=== PATIENT | female | born 1970 | race Caucasian/White ===

== ENCOUNTER 2016-05-25 16:02 | Inpatient (IN) | payer OTHER ==
[~2016-05-25] VITALS: Ht 160 cm; Wt 72.1 kg
[~2016-05-25 16:02] MED LIST: ATEN25TA PO; FURO-145 PO; LEVO175T7 PO; MONT10TA22 PO; POTA10TA10 PO; TRAZ-144 PO
[2016-05-25] MEDS ORDERED: DEXTROSE 50%-WATER 50 ML DISP.SYRIN ONE (16:22)
[2016-05-25] MEDS ORDERED: IV NS 0.9% 1,000 ML ONE ×2 (16:23→18:56)
[2016-05-25] MEDS ORDERED: IV SET PRIMARY PUMP SET 1 EA INFUS.SET MC ONE ×2 (16:23→18:56)
[2016-05-25] MEDS ORDERED: DEXTROSE 50%-WATER 50 ML DISP.SYRIN IV ONE (16:30)
[2016-05-25] MEDS ORDERED: IV NS 0.9% 1,000 ML BAG IV ONE ×2 (16:30→18:30)
[2016-05-25 16:59] LABS: BASOPHILS % (AUTO) 0.1 % (0.0-2.0); DIFF TOTAL % 100 %; HEMATOCRIT 32 % (33-45); HEMOGLOBIN 10.5 g/dL (11.5-14.8); LYMPHOCYTES # (AUTO) 1.6 /CMM (0.8-4.8); LYMPHOCYTES % (AUTO) 9.7 % (20.0-44.0); MEAN CORPUSCULAR HEMOGLOBIN 30 PG (26.0-33.0); MEAN CORPUSCULAR HGB CONC 33 g/dl (31.0-36.0); MEAN CORPUSCULAR VOLUME 91 fL (82-100); MONOCYTES # (AUTO) 0.1 /CMM (0.1-1.30); MONOCYTES % (AUTO) 0.5 % (2.0-12.0); NEUTROPHILS # (AUTO) 14.8 /CMM (1.8-8.9); NEUTROPHILS % (AUTO) 89.7 % (43.0-81.0); PLATELET COUNT (AUTO) 162 /CMM (150-450); RED BLOOD CELL COUNT(AUTO) 3.55 MIL/uL (4.0-5.2); WHITE BLOOD COUNT (AUTO) 16.5 K/uL (4.3-11.0)
[2016-05-25 17:16] LABS: TROPONIN I < 0.017 ng/mL (0.00-0.056)
[2016-05-25 17:18] LABS: LACTIC ACID 2.3 mmol/L (0.4-2.0)
[2016-05-25 17:21] LABS: ANION GAP 16 (5-14); CALCIUM, SERUM 6.7 mg/dL (8.5-10.1); CARBON DIOXIDE 22 mmol/L (21-32); CHLORIDE 106 mmol/L (98-107); GFR 61 mL/min (>60); GLUCOSE 141 mg/dL (74-106); POTASSIUM 4.2 mmol/L (3.5-5.1); SODIUM SERUM 140 mmol/L (136-145); UREA NITROGEN, BLOOD 9 mg/dL (7-18)
[2016-05-25 17:27] LABS: ACETAMINOPHEN 4 ug/ml (10-30); ALANINE AMINOTRANSFERASE 42 U/L (12-78); ASPARTATE AMINOTRANSFERASE 65 U/L (15-37); BILIRUBIN,DIRECT 0.8 mg/dL (0.0-0.2); BILIRUBIN,TOTAL 1.2 mg/dL (0.2-1.0); INDIRECT BILIRUBIN 0.4 mg/dL (0.0-1.1); TOTAL PROTEIN, SERUM 4.6 g/dL (6.4-8.2)
[2016-05-25 17:30] LABS: ALBUMIN 0.9 g/dL (3.4-5.0)
[2016-05-25 17:43] LABS: THYROID STIMULATING HORMONE 0.083 uIU/mL (0.358-3.74)
[2016-05-25 17:45] LABS: *LACTIC ACID REFLEX FLAG YES
[2016-05-25 17:52] LABS: INR 1.64 (0.87-1.13); PROTHROMBIN TIME 17.8 SECS (9.5-12.7)
[2016-05-25 18:07] LABS: BAND % (MANUAL) 3 % (0.0-5.0)
[2016-05-25 18:08] LABS: LYMPHOCYTES % (MANUAL) 6 % (16-48)
[2016-05-25] MEDS ORDERED: LEVOFLOXACIN 750 MG /D5W 150ML 150 ML IV ONE ×2 (18:30→18:56)
[2016-05-25 18:53] LABS: KETONES,URINE TRACE (NEGATIVE); LEUKOCYTE ESTERASE ,URINE NEGATIVE (NEGATIVE)
[2016-05-25 18:54] LABS: PREGNANCY TEST URINE QUAL NEGATIVE (NEGATIVE)
[2016-05-25 18:58] LABS: ADD UA MICROSCOPIC YES
[2016-05-25 19:05] LABS: ADD URINE CULTURE NO; RBC,URINE 0-2 /HPF (0-2); WBC,URINE 0-2 /HPF (0-3)
[2016-05-25 19:11] LABS: CANNABINOID, URINE NEGATIVE (NEGATIVE); PHENCYCLIDINE SCREEN,URINE NEGATIVE (NEGATIVE)
[2016-05-25 19:28] LABS: CREATINE KINASE MB 7.6 ng/mL (0-3.6)
[2016-05-25] MEDS ORDERED: ZOLPIDEM TARTRATE 5 MG TABLET PO PRN (21:30)
[2016-05-25] MEDS ORDERED: MAG HYDROX/AL HYDROX/SIMETH 30 ML UDC PO PRN (21:30)
[2016-05-25] MEDS ORDERED: LORAZEPAM INJ 2 MG/ML VIAL IVP PRN (21:30)
[2016-05-25] MEDS ORDERED: MAGNESIUM HYDROXIDE 30 ML UDC PO PRN (21:30)
[2016-05-25] MEDS ORDERED: ONDANSETRON HCL/PF 4 MG/2 ML VIAL IVP PRN (21:30)
[2016-05-26] MEDS: LEVOFLOXACIN 750 MG /D5W 150ML 750 MG in PREMIX 1 EA IV SCH ×2 (00:11→23:40)
[2016-05-26] MEDS ORDERED: LORAZEPAM INJ 2 MG/ML VIAL ONE (04:40)
[2016-05-26] MEDS ORDERED: AZTREONAM 1 G VIAL ONE (05:07)
[2016-05-26] MEDS ORDERED: FLUCONAZOLE IN NS 100 ML IV ONE (05:08)
[2016-05-26] MEDS ORDERED: IV NS 0.9% 100 ML IV ONE (05:20)
[2016-05-26] MEDS: AZTREONAM 1 G in IV NS 0.9% 100 ML IV SCH ×3 (05:36→22:14)
[2016-05-26 08:00] VITALS: BP_SYST 106; BP_SYST 118; BP_DIAS 66; BP_DIAS 74
[2016-05-26 08:31] LABS: BASOPHILS % (AUTO) 0.1 % (0.0-2.0); DIFF TOTAL % 100 %; EOSINOPHILS % (AUTO) 0.1 % (0.0-6.0); HEMATOCRIT 32 % (33-45); HEMOGLOBIN 10.4 g/dL (11.5-14.8); LYMPHOCYTES % (AUTO) 6.2 % (20.0-44.0); MEAN CORPUSCULAR HEMOGLOBIN 30 PG (26.0-33.0); MEAN CORPUSCULAR HGB CONC 33 g/dl (31.0-36.0); MEAN CORPUSCULAR VOLUME 91 fL (82-100); MONOCYTES # (AUTO) 0.3 /CMM (0.1-1.30); NEUTROPHILS # (AUTO) 14.4 /CMM (1.8-8.9); NEUTROPHILS % (AUTO) 91.6 % (43.0-81.0); PLATELET COUNT (AUTO) 98 /CMM (150-450); WHITE BLOOD COUNT (AUTO) 15.7 K/uL (4.3-11.0)
[2016-05-26 09:17] LABS: LYMPHOCYTES % (MANUAL) 16 % (16-48); PLATELET ESTIMATE DECREASED
[2016-05-26 09:54] LABS: PREALBUMIN 6.3 MG/DL (18.0-35.7)
[2016-05-26 09:57] LABS: LACTIC ACID 1.4 mmol/L (0.4-2.0)
[2016-05-26 10:52] LABS: CALCIUM, SERUM 6.8 mg/dL (8.5-10.1); CREATININE 0.8 mg/dL (0.6-1.3); PHOSPHORUS 3.3 mg/dL (2.5-4.9)
[2016-05-26 11:05] LABS: POTASSIUM 4.1 mmol/L (3.5-5.1)
[2016-05-26 11:56] LABS: CREATINE KINASE MB 13.1 ng/mL (0-3.6)
[2016-05-26] MEDS ORDERED: SECONDARY IV SET 1 EA INFUS.SET MC ONE ×3 (14:35→23:35)
[2016-05-26] MEDS: PANTOPRAZOLE 40 MG VIAL IV SCH (14:43)
[2016-05-26] MEDS: FUROSEMIDE 20 MG TABLET PO SCH (14:43)
[2016-05-26] MEDS: MONTELUKAST SODIUM (10MG) 10 MG TABLET PO SCH (14:43)
[2016-05-26] MEDS: LEVOTHYROXINE SODIUM 175 MCG TABLET PO SCH (14:43)
[2016-05-26] MEDS: POTASSIUM CHLORIDE 10 MEQ TABLET.SA PO SCH (14:45)
[2016-05-26] MEDS: Magnesium 1GM/D5W 100ML PREMIX 100 ML IV SCH ×2 (14:46→15:36)
[2016-05-26] MEDS: IV NS 0.9% 1,000 ML IV PRN (14:47)
[2016-05-26] MEDS: ATENOLOL 25 MG TABLET PO SCH (14:48)
[2016-05-26] MEDS: Z GUARD REMEDY 2 OZ OINT TP SCH (14:49)
[2016-05-26 16:00] VITALS: BP 90/50
[2016-05-26] MEDS: ACETAMINOPHEN 325 MG TABLET PO PRN (20:12)
[2016-05-26 20:25] VITALS: BP 118/75
[2016-05-26] MEDS: TRAZODONE 50 MG TABLET PO SCH (22:15)
[2016-05-27 00:19] VITALS: BP 102/66
[2016-05-27 04:23] VITALS: BP 89/53
[2016-05-27] MEDS: LORAZEPAM INJ 2 MG/ML VIAL IV PRN (04:40)
[2016-05-27] MEDS: AZTREONAM 1 G in IV NS 0.9% 100 ML IV SCH ×2 (04:41→12:58)
[2016-05-27] MEDS: LEVOTHYROXINE SODIUM 175 MCG TABLET PO SCH (06:47)
[2016-05-27 07:35] LABS: CALCIUM, SERUM 6.9 mg/dL (8.5-10.1); POTASSIUM 3.5 mmol/L (3.5-5.1)
[2016-05-27] MEDS: FUROSEMIDE 20 MG TABLET PO SCH (08:08)
[2016-05-27] MEDS: MONTELUKAST SODIUM (10MG) 10 MG TABLET PO SCH (08:08)
[2016-05-27] MEDS: POTASSIUM CHLORIDE 10 MEQ TABLET.SA PO SCH (08:09)
[2016-05-27] MEDS: ATENOLOL 25 MG TABLET PO SCH (08:09)
[2016-05-27] MEDS: PANTOPRAZOLE 40 MG VIAL IV SCH (08:10)
[2016-05-27] MEDS: Z GUARD REMEDY 2 OZ OINT TP SCH (08:25)
[2016-05-27 12:00] VITALS: BP 98/66
[2016-05-27] MEDS: Magnesium 1GM/D5W 100ML PREMIX 100 ML IV SCH ×2 (14:09→16:44)
[2016-05-27 16:00] VITALS: BP 84/45
[2016-05-27] MEDS: LACTOBACILLUS RHAMNOSUS GG 1 EACH CAP.SPRINK PO SCH (16:44)
[2016-05-27] MEDS ORDERED: IV NS 0.9% 1,000 ML BAG IV ONE (17:30)
[2016-05-27] MEDS ORDERED: FEE PK DOSING 1 MIN EA MC ONE (18:52)
[2016-05-27] MEDS: IV NS 0.9% 1,000 ML IV PRN (19:32)
[2016-05-27 20:00] VITALS: BP 91/53
[2016-05-27] MEDS: VANCOMYCIN 500 MG in IV D5W 100 ML IV SCH (21:14)
[2016-05-27] MEDS: TRAZODONE 50 MG TABLET PO SCH (22:22)
[2016-05-27] MEDS: Z GUARD REMEDY 2 OZ OINT TP PRN (22:23)
[2016-05-27] MEDS: NYSTATIN CREAM 15 GM TUBE TP SCH (22:24)
[2016-05-27] MEDS: LEVOFLOXACIN 750 MG /D5W 150ML 750 MG in PREMIX 1 EA IV SCH (23:25)
[2016-05-28] VITALS (7 sets, daily range): BP systolic 73–100; BP diastolic 43–59
[2016-05-28 04:13] LABS: HEPATITIS C VIRUS AB <0.1 s/co ratio (0.0-0.9)
[2016-05-28] MEDS: VANCOMYCIN 500 MG in IV D5W 100 ML IV SCH ×2 (04:38→12:37)
[2016-05-28] MEDS: ACETAMINOPHEN 325 MG TABLET PO PRN (06:00)
[2016-05-28] MEDS: Z GUARD REMEDY 2 OZ OINT TP PRN ×3 (06:00→21:33)
[2016-05-28 08:21] LABS: CALCIUM, SERUM 7.1 mg/dL (8.5-10.1); CREATININE 1.2 mg/dL (0.6-1.3); POTASSIUM 3.6 mmol/L (3.5-5.1)
[2016-05-28] MEDS: LACTOBACILLUS RHAMNOSUS GG 1 EACH CAP.SPRINK PO SCH ×2 (08:45→16:36)
[2016-05-28] MEDS: POTASSIUM CHLORIDE 10 MEQ TABLET.SA PO SCH (08:45)
[2016-05-28] MEDS: LEVOTHYROXINE SODIUM 175 MCG TABLET PO SCH (08:46)
[2016-05-28] MEDS: PANTOPRAZOLE 40 MG VIAL IV SCH (08:46)
[2016-05-28] MEDS: MONTELUKAST SODIUM (10MG) 10 MG TABLET PO SCH (08:48)
[2016-05-28] MEDS: ATENOLOL 25 MG TABLET PO SCH (08:55)
[2016-05-28] MEDS: FUROSEMIDE 20 MG TABLET PO SCH (08:55)
[2016-05-28] MEDS: NYSTATIN CREAM 15 GM TUBE TP SCH ×2 (08:55→16:36)
[2016-05-28] MEDS: Z GUARD REMEDY 2 OZ OINT TP SCH (08:57)
[2016-05-28] MEDS ORDERED: IV NS 0.9% 500 ML IV ONE ×2 (09:29→09:30)
[2016-05-28] MEDS ORDERED: IV SET PRIMARY PUMP SET 1 EA INFUS.SET MC ONE (09:29)
[2016-05-28] MEDS ORDERED: HYDROGEL DRESSING 90 GM TUBE TP PRN (10:00)
[2016-05-28] MEDS: HYDROGEL DRESSING 90 GM TUBE TP SCH (12:38)
[2016-05-28] MEDS: IV NS 0.9% 1,000 ML IV PRN (16:36)
[2016-05-28] MEDS: TRAZODONE 50 MG TABLET PO SCH (21:32)
[2016-05-28] MEDS: LEVOFLOXACIN 750 MG /D5W 150ML 750 MG in PREMIX 1 EA IV SCH (23:19)
[2016-05-28] MEDS ORDERED: SECONDARY IV SET 1 EA INFUS.SET MC ONE (23:20)
[2016-05-29] MEDS: VANCOMYCIN 500 MG in IV D5W 100 ML IV SCH ×2 (00:57→12:08)
[2016-05-29] MEDS: ACETAMINOPHEN 325 MG TABLET PO PRN ×3 (01:01→21:11)
[2016-05-29] MEDS: IV NS 0.9% 1,000 ML IV PRN ×2 (06:15→23:48)
[2016-05-29 08:00] VITALS: BP 103/68
[2016-05-29] MEDS: MONTELUKAST SODIUM (10MG) 10 MG TABLET PO SCH (08:02)
[2016-05-29] MEDS: PANTOPRAZOLE 40 MG VIAL IV SCH (08:02)
[2016-05-29] MEDS: LEVOTHYROXINE SODIUM 175 MCG TABLET PO SCH (08:02)
[2016-05-29] MEDS: FUROSEMIDE 20 MG TABLET PO SCH (08:02)
[2016-05-29] MEDS: POTASSIUM CHLORIDE 10 MEQ TABLET.SA PO SCH (08:02)
[2016-05-29] MEDS: LACTOBACILLUS RHAMNOSUS GG 1 EACH CAP.SPRINK PO SCH ×2 (08:03→17:14)
[2016-05-29] MEDS: ATENOLOL 25 MG TABLET PO SCH (08:03)
[2016-05-29] MEDS: Z GUARD REMEDY 2 OZ OINT TP SCH (08:04)
[2016-05-29] MEDS: NYSTATIN CREAM 15 GM TUBE TP SCH ×2 (08:05→17:16)
[2016-05-29] MEDS: HYDROGEL DRESSING 90 GM TUBE TP SCH (08:05)
[2016-05-29 10:02] LABS: CALCIUM, SERUM 6.8 mg/dL (8.5-10.1); CREATININE 1.1 mg/dL (0.6-1.3); POTASSIUM 3.2 mmol/L (3.5-5.1)
[2016-05-29] MEDS ORDERED: Magnesium 1GM/D5W 100ML PREMIX 100 ML IV SCH (12:30)
[2016-05-29] MEDS ORDERED: POTASSIUM CL. PREMIX PERIPHER. 50 ML IV SCH (12:30)
[2016-05-29] MEDS ORDERED: SECONDARY IV SET 1 EA INFUS.SET MC ONE (13:29)
[2016-05-29] MEDS ORDERED: IV SET PRIMARY PUMP SET 1 EA INFUS.SET MC ONE (13:30)
[2016-05-29] MEDS: POTASSIUM CL. PREMIX PERIPHER. 50 ML IV SCH ×4 (13:33→17:15)
[2016-05-29] MEDS: Magnesium 1GM/D5W 100ML PREMIX 100 ML IV SCH ×2 (13:33→14:58)
[2016-05-29] MEDS ORDERED: Sodium Phosphate 15 MMOL in IV D5W 250 ML IV ONE (14:00)
[2016-05-29 16:00] VITALS: BP 103/64
[2016-05-29 16:54] LABS: BASOPHILS # (AUTO) 0.2 /CMM (0.0-0.2); BASOPHILS % (AUTO) 2.5 % (0.0-2.0); DIFF TOTAL % 100 %; EOSINOPHILS % (AUTO) 0.5 % (0.0-6.0); HEMATOCRIT 31 % (33-45); HEMOGLOBIN 10.3 g/dL (11.5-14.8); LYMPHOCYTES # (AUTO) 3.2 /CMM (0.8-4.8); LYMPHOCYTES % (AUTO) 35.2 % (20.0-44.0); MEAN CORPUSCULAR HEMOGLOBIN 30 PG (26.0-33.0); MEAN CORPUSCULAR HGB CONC 33 g/dl (31.0-36.0); MEAN CORPUSCULAR VOLUME 91 fL (82-100); MONOCYTES # (AUTO) 0.1 /CMM (0.1-1.30); MONOCYTES % (AUTO) 1.6 % (2.0-12.0); NEUTROPHILS # (AUTO) 5.5 /CMM (1.8-8.9); NEUTROPHILS % (AUTO) 60.2 % (43.0-81.0); PLATELET COUNT (AUTO) 59 /CMM (150-450); RED BLOOD CELL COUNT(AUTO) 3.41 MIL/uL (4.0-5.2); WHITE BLOOD COUNT (AUTO) 9.1 K/uL (4.3-11.0)
[2016-05-29 18:32] LABS: LYMPHOCYTES % (MANUAL) 13 % (16-48)
[2016-05-29 18:33] LABS: ANISOCYTOSIS 1+; PLATELET ESTIMATE DECREASED
[2016-05-29 18:44] LABS: ABG PCO2 31.1 mmHg (35.0-45.0); ABG PH 7.468 (7.350-7.450); ABG PO2 72.2 mmHg (75.0-100.0); ABG TOTAL HEMOGLOBIN 10.8 G/dL (12.0-16.0); ALLEN TEST Pass; AaDO2 126.8 mmHg
[2016-05-29 20:00] VITALS: BP 100/54
[2016-05-29] MEDS: IPRATROPIUM NEB FS 0.5 MG/2.5 ML AMPUL.NEB NEB PRN (20:28)
[2016-05-29] MEDS: ALBUTEROL FS 2.5 MG/0.5 ML VIAL.NEB NEB PRN (20:28)
[2016-05-29] MEDS: TRAZODONE 50 MG TABLET PO SCH (21:10)
[2016-05-29 22:00] VITALS: BP 100/54
[2016-05-29] MEDS: Z GUARD REMEDY 2 OZ OINT TP PRN (22:48)
[2016-05-29] MEDS: LEVOFLOXACIN 750 MG /D5W 150ML 750 MG in PREMIX 1 EA IV SCH (23:55)
[2016-05-30] VITALS (66 sets, daily range): BP systolic 64–130; BP diastolic 17–94
[2016-05-30] MEDS: VANCOMYCIN 500 MG in IV D5W 100 ML IV SCH ×3 (01:37→12:00)
[2016-05-30] MEDS: ALBUTEROL FS 2.5 MG/0.5 ML VIAL.NEB NEB PRN ×2 (01:52→08:45)
[2016-05-30] MEDS: IPRATROPIUM NEB FS 0.5 MG/2.5 ML AMPUL.NEB NEB PRN (01:52)
[2016-05-30 07:18] LABS: BASOPHILS # (AUTO) 0.2 /CMM (0.0-0.2); BASOPHILS % (AUTO) 2.4 % (0.0-2.0); DIFF TOTAL % 100 %; HEMATOCRIT 30 % (33-45); HEMOGLOBIN 10.3 g/dL (11.5-14.8); LYMPHOCYTES # (AUTO) 3.2 /CMM (0.8-4.8); LYMPHOCYTES % (AUTO) 30.5 % (20.0-44.0); MEAN CORPUSCULAR HEMOGLOBIN 31 PG (26.0-33.0); MEAN CORPUSCULAR HGB CONC 34 g/dl (31.0-36.0); MEAN CORPUSCULAR VOLUME 90 fL (82-100); MONOCYTES # (AUTO) 0.1 /CMM (0.1-1.30); MONOCYTES % (AUTO) 1.2 % (2.0-12.0); NEUTROPHILS # (AUTO) 6.9 /CMM (1.8-8.9); NEUTROPHILS % (AUTO) 65.9 % (43.0-81.0); RED BLOOD CELL COUNT(AUTO) 3.34 MIL/uL (4.0-5.2); WHITE BLOOD COUNT (AUTO) 10.4 K/uL (4.3-11.0)
[2016-05-30 07:39] LABS: PLATELET COUNT (AUTO) 42 /CMM (150-450)
[2016-05-30 07:58] LABS: CREATININE 1.1 mg/dL (0.6-1.3); PHOSPHORUS 3.1 mg/dL (2.5-4.9); POTASSIUM 3.9 mmol/L (3.5-5.1)
[2016-05-30] MEDS: LEVOTHYROXINE SODIUM 175 MCG TABLET PO SCH (08:00)
[2016-05-30 08:34] LABS: BAND % (MANUAL) 3 % (0.0-5.0); LYMPHOCYTES % (MANUAL) 14 % (16-48); PLATELET ESTIMATE DECREASED
[2016-05-30] MEDS: POTASSIUM CHLORIDE 10 MEQ TABLET.SA PO SCH ×2 (09:00→10:00)
[2016-05-30] MEDS: ATENOLOL 25 MG TABLET PO SCH ×2 (09:00→10:01)
[2016-05-30] MEDS: MULTIVITAMINS,THERAPEUTIC 1 UDTAB TABLET GT SCH ×2 (09:00→10:00)
[2016-05-30] MEDS: FUROSEMIDE 20 MG TABLET PO SCH ×2 (09:00→10:00)
[2016-05-30] MEDS: LACTOBACILLUS RHAMNOSUS GG 1 EACH CAP.SPRINK PO SCH (10:00)
[2016-05-30] MEDS: PANTOPRAZOLE 40 MG VIAL IV SCH ×2 (10:00→13:12)
[2016-05-30] MEDS: MONTELUKAST SODIUM (10MG) 10 MG TABLET PO SCH (10:00)
[2016-05-30] MEDS: NYSTATIN CREAM 15 GM TUBE TP SCH ×2 (10:02→17:14)
[2016-05-30] MEDS: HYDROGEL DRESSING 90 GM TUBE TP SCH (10:02)
[2016-05-30] MEDS: Z GUARD REMEDY 2 OZ OINT TP SCH (10:03)
[2016-05-30] MEDS ORDERED: FUROSEMIDE 40 MG/4 ML VIAL IV SCH (10:30)
[2016-05-30 10:39] LABS: ABG BASE EXCESS -6.6 mmol/L; ABG HCO3 21.1 mmol/L; ABG PCO2 52.4 mmHg (35.0-45.0); ABG PH 7.223 (7.350-7.450); ABG PO2 72.6 mmHg (75.0-100.0); ABG TOTAL HEMOGLOBIN 10.5 G/dL (12.0-16.0); ALLEN TEST Pass; O2Hb 85.7 % (94.0-97.0)
[2016-05-30] MEDS ORDERED: PHARMACY TO CHANGE PO MEDS TO GT/NG XX PRN (11:30)
[2016-05-30] MEDS ORDERED: IV SET PRIMARY PUMP SET 1 EA INFUS.SET MC ONE ×3 (11:47→20:23)
[2016-05-30] MEDS ORDERED: SUCCINYLCHOLINE CHLORIDE 20 MG/ML VIAL IV ONE (12:00)
[2016-05-30] MEDS ORDERED: ETOMIDATE 2 MG/ML VIAL IV ONE (12:00)
[2016-05-30] MEDS: PROPOFOL 100 ML IV PRN ×3 (12:21→21:08)
[2016-05-30] MEDS ORDERED: MAGNESIUM HYDROXIDE 30 ML UDC GT PRN (13:00)
[2016-05-30] MEDS ORDERED: MAG HYDROX/AL HYDROX/SIMETH 30 ML UDC GT PRN (13:00)
[2016-05-30] MEDS ORDERED: IV NS 0.9% 500 ML IV ONE (13:30)
[2016-05-30] MEDS ORDERED: VANCOMYCIN 1 GM in IV D5W 250 ML IV ONE (13:30)
[2016-05-30] MEDS ORDERED: SECONDARY IV SET 1 EA INFUS.SET MC ONE (13:30)
[2016-05-30] MEDS ORDERED: CLINDAMYCIN 900 MG in IV D5W 50 ML IV SCH (14:00)
[2016-05-30] MEDS ORDERED: CLINDAMYCIN IV RTU IN D5W 900 MG/50 ML PIGGYBACK IV SCH (14:00)
[2016-05-30] MEDS: NOREPINEPHRINE 16 MG in IV D5W 500 ML IV PRN (14:12)
[2016-05-30] MEDS: LORAZEPAM INJ 2 MG/ML VIAL IV PRN (14:39)
[2016-05-30] MEDS: IV D5/ 0.9% NACL 1,000 ML IV PRN (14:45)
[2016-05-30 15:18] LABS: ABG BASE EXCESS -3.5 mmol/L; ABG HCO3 20.3 mmol/L; ABG PO2 51.5 mmHg (75.0-100.0); ABG TOTAL HEMOGLOBIN 10.6 G/dL (12.0-16.0); AaDO2 629.5 mmHg; O2Hb 81.4 % (94.0-97.0)
[2016-05-30] MEDS: MEROPENEM 500 MG in IV NS 0.9% 50 ML IV SCH (21:08)
[2016-05-30] MEDS: TRAZODONE 50 MG TABLET GT SCH (21:09)
[2016-05-30] MEDS ORDERED: LEVOFLOXACIN 750 MG /D5W 150ML 150 ML IV ONE (22:15)
[2016-05-30] MEDS: LEVOFLOXACIN 750 MG /D5W 150ML 750 MG in PREMIX 1 EA IV SCH (22:54)
[2016-05-31] VITALS (101 sets, daily range): BP systolic 81–137; BP diastolic 40–80
[2016-05-31] MEDS ORDERED: SECONDARY IV SET 1 EA INFUS.SET MC ONE (02:14)
[2016-05-31] MEDS: MEROPENEM 500 MG in IV NS 0.9% 50 ML IV SCH ×3 (04:21→20:39)
[2016-05-31] MEDS: IV D5/ 0.9% NACL 1,000 ML IV PRN ×2 (04:21→19:41)
[2016-05-31] MEDS: NOREPINEPHRINE 16 MG in IV D5W 500 ML IV PRN ×2 (04:22→20:01)
[2016-05-31] MEDS: PROPOFOL 100 ML IV PRN ×4 (04:57→23:23)
[2016-05-31 05:13] LABS: BASOPHILS % (AUTO) 0.2 % (0.0-2.0); DIFF TOTAL % 100 %; EOSINOPHILS % (AUTO) 0.3 % (0.0-6.0); HEMATOCRIT 32 % (33-45); HEMOGLOBIN 10.8 g/dL (11.5-14.8); LYMPHOCYTES # (AUTO) 2.9 /CMM (0.8-4.8); LYMPHOCYTES % (AUTO) 26.3 % (20.0-44.0); MEAN CORPUSCULAR HEMOGLOBIN 31 PG (26.0-33.0); MEAN CORPUSCULAR HGB CONC 34 g/dl (31.0-36.0); MEAN CORPUSCULAR VOLUME 92 fL (82-100); MONOCYTES % (AUTO) 0.4 % (2.0-12.0); NEUTROPHILS % (AUTO) 72.8 % (43.0-81.0); RED BLOOD CELL COUNT(AUTO) 3.52 MIL/uL (4.0-5.2)
[2016-05-31 05:19] LABS: CALCIUM, SERUM 6.9 mg/dL (8.5-10.1); CREATININE 1.1 mg/dL (0.6-1.3); PHOSPHORUS 3.4 mg/dL (2.5-4.9); POTASSIUM 3.9 mmol/L (3.5-5.1)
[2016-05-31 05:24] LABS: PLATELET COUNT (AUTO) 42 /CMM (150-450)
[2016-05-31 06:13] LABS: BAND % (MANUAL) 4 % (0.0-5.0); LYMPHOCYTES % (MANUAL) 12 % (16-48)
[2016-05-31 06:14] LABS: PLATELET ESTIMATE DECREASED
[2016-05-31 06:15] LABS: ANISOCYTOSIS 1+; HYPOCHROMASIA 1+
[2016-05-31] MEDS: PANTOPRAZOLE 40 MG VIAL IV SCH (08:10)
[2016-05-31] MEDS: MULTIVITAMINS,THERAPEUTIC 1 UDTAB TABLET GT SCH (08:10)
[2016-05-31] MEDS: LEVOTHYROXINE SODIUM 175 MCG TABLET GT SCH (08:10)
[2016-05-31] MEDS: HYDROGEL DRESSING 90 GM TUBE TP SCH (08:11)
[2016-05-31] MEDS: NYSTATIN CREAM 15 GM TUBE TP SCH ×2 (08:11→17:27)
[2016-05-31] MEDS: Z GUARD REMEDY 2 OZ OINT TP SCH (08:12)
[2016-05-31] MEDS ORDERED: FUROSEMIDE 20 MG TABLET GT SCH (09:00)
[2016-05-31] MEDS ORDERED: POTASSIUM CHLORIDE 20 MEQ POWDER PACKET GT SCH (09:00)
[2016-05-31] MEDS ORDERED: ATENOLOL 25 MG TABLET GT SCH (09:00)
[2016-05-31] MEDS: VANCOMYCIN 0.75 GM in IV D5W 250 ML IV SCH (09:48)
[2016-05-31 10:26] LABS: ABG BASE EXCESS -4.7 mmol/L; ABG HCO3 18.5 mmol/L; ABG PH 7.437 (7.350-7.450); ABG PO2 70.3 mmHg (75.0-100.0); ABG TOTAL HEMOGLOBIN 10.7 G/dL (12.0-16.0); ALLEN TEST Pass; AaDO2 470.7 mmHg; O2Hb 90.3 % (94.0-97.0)
[2016-05-31] MEDS ORDERED: IV SET PRIMARY PUMP SET 1 EA INFUS.SET MC ONE ×2 (11:22→19:17)
[2016-05-31] MEDS: MORPHINE SULFATE INJ 2 MG/ML DISP.SYRIN IV PRN (14:21)
[2016-05-31] MEDS: TRAZODONE 50 MG TABLET GT SCH (21:49)
[2016-05-31] MEDS: LEVOFLOXACIN 750 MG /D5W 150ML 750 MG in PREMIX 1 EA IV SCH (23:23)
[2016-05-31] MEDS: LORAZEPAM INJ 2 MG/ML VIAL IV PRN (23:24)
[2016-06-01] VITALS (98 sets, daily range): BP systolic 55–115; BP diastolic 30–78
[2016-06-01] MEDS: MEROPENEM 500 MG in IV NS 0.9% 50 ML IV SCH ×3 (04:15→20:22)
[2016-06-01 04:32] LABS: BASOPHILS % (AUTO) 0.1 % (0.0-2.0); DIFF TOTAL % 100 %; EOSINOPHILS % (AUTO) 0.1 % (0.0-6.0); HEMATOCRIT 29 % (33-45); HEMOGLOBIN 9.9 g/dL (11.5-14.8); LYMPHOCYTES # (AUTO) 1.9 /CMM (0.8-4.8); LYMPHOCYTES % (AUTO) 15.6 % (20.0-44.0); MEAN CORPUSCULAR HEMOGLOBIN 31 PG (26.0-33.0); MEAN CORPUSCULAR HGB CONC 34 g/dl (31.0-36.0); MEAN CORPUSCULAR VOLUME 92 fL (82-100); MONOCYTES # (AUTO) 0.2 /CMM (0.1-1.30); MONOCYTES % (AUTO) 1.7 % (2.0-12.0); NEUTROPHILS % (AUTO) 82.5 % (43.0-81.0); WHITE BLOOD COUNT (AUTO) 12.1 K/uL (4.3-11.0)
[2016-06-01 04:48] LABS: CALCIUM, SERUM 6.9 mg/dL (8.5-10.1); PHOSPHORUS 2.3 mg/dL (2.5-4.9); POTASSIUM 3.6 mmol/L (3.5-5.1)
[2016-06-01 04:50] LABS: PLATELET COUNT (AUTO) 32 /CMM (150-450)
[2016-06-01] MEDS: LORAZEPAM INJ 2 MG/ML VIAL IV PRN ×2 (05:03→14:21)
[2016-06-01 05:31] LABS: BAND % (MANUAL) 3 % (0.0-5.0); LYMPHOCYTES % (MANUAL) 11 % (16-48)
[2016-06-01 05:32] LABS: ANISOCYTOSIS 1+; HYPOCHROMASIA 2+; PLATELET ESTIMATE DECREASED
[2016-06-01] MEDS: PANTOPRAZOLE 40 MG VIAL IV SCH (08:07)
[2016-06-01] MEDS: LEVOTHYROXINE SODIUM 175 MCG TABLET GT SCH (08:08)
[2016-06-01] MEDS: MULTIVITAMINS,THERAPEUTIC 1 UDTAB TABLET GT SCH (08:08)
[2016-06-01] MEDS: VANCOMYCIN 0.75 GM in IV D5W 250 ML IV SCH (08:08)
[2016-06-01] MEDS: Z GUARD REMEDY 2 OZ OINT TP SCH (08:09)
[2016-06-01] MEDS: NYSTATIN CREAM 15 GM TUBE TP SCH ×2 (08:09→18:23)
[2016-06-01] MEDS: HYDROGEL DRESSING 90 GM TUBE TP SCH (08:09)
[2016-06-01] MEDS: PROPOFOL 100 ML IV PRN ×2 (08:15→15:48)
[2016-06-01] MEDS ORDERED: IV SET PRIMARY PUMP SET 1 EA INFUS.SET MC ONE ×2 (09:58→23:59)
[2016-06-01] MEDS: Magnesium 1GM/D5W 100ML PREMIX 100 ML IV SCH ×2 (10:08→11:11)
[2016-06-01 10:13] LABS: ABG BASE EXCESS -1.7 mmol/L; ABG HCO3 21.6 mmol/L; ABG PCO2 31.4 mmHg (35.0-45.0); ABG PH 7.455 (7.350-7.450); ABG PO2 145.9 mmHg (75.0-100.0); ABG TOTAL HEMOGLOBIN 9.9 G/dL (12.0-16.0); AaDO2 391.5 mmHg; O2Hb 95.2 % (94.0-97.0)
[2016-06-01] MEDS: IV D5/ 0.9% NACL 1,000 ML IV PRN (11:12)
[2016-06-01] MEDS: NOREPINEPHRINE 16 MG in IV D5W 500 ML IV PRN (11:32)
[2016-06-01] MEDS ORDERED: FIBERSOURCE HN 1,000 ML BOTTLE GT PRN (12:00)
[2016-06-01 12:16] LABS: THYROID STIMULATING HORMONE 0.083 uIU/mL (0.358-3.74)
[2016-06-01 12:59] LABS: INR 1.6 (0.87-1.13); PROTHROMBIN TIME 17.4 SECS (9.5-12.7)
[2016-06-01] MEDS ORDERED: NEUTRA PHOS 1 POWD.PACKET GT ONE (13:30)
[2016-06-01] MEDS: TRAZODONE 50 MG TABLET GT SCH (22:00)
[2016-06-01] MEDS: LEVOFLOXACIN 750 MG /D5W 150ML 750 MG in PREMIX 1 EA IV SCH (23:55)
[2016-06-02] VITALS (82 sets, daily range): BP systolic 75–134; BP diastolic 51–80
[2016-06-02] MEDS: IV D5/ 0.9% NACL 1,000 ML IV PRN ×2 (00:04→18:36)
[2016-06-02] MEDS: PROPOFOL 100 ML IV PRN ×4 (00:05→18:36)
[2016-06-02] MEDS: LORAZEPAM INJ 2 MG/ML VIAL IV PRN (01:18)
[2016-06-02] MEDS: NOREPINEPHRINE 16 MG in IV D5W 500 ML IV PRN ×2 (02:09→16:21)
[2016-06-02 04:41] LABS: BASOPHILS # (AUTO) 0.1 /CMM (0.0-0.2); BASOPHILS % (AUTO) 0.5 % (0.0-2.0); DIFF TOTAL % 100 %; EOSINOPHILS % (AUTO) 0.2 % (0.0-6.0); HEMATOCRIT 29 % (33-45); HEMOGLOBIN 9.9 g/dL (11.5-14.8); LYMPHOCYTES # (AUTO) 2.4 /CMM (0.8-4.8); LYMPHOCYTES % (AUTO) 17.8 % (20.0-44.0); MEAN CORPUSCULAR HEMOGLOBIN 31 PG (26.0-33.0); MEAN CORPUSCULAR HGB CONC 34 g/dl (31.0-36.0); MEAN CORPUSCULAR VOLUME 92 fL (82-100); MONOCYTES # (AUTO) 0.5 /CMM (0.1-1.30); MONOCYTES % (AUTO) 3.7 % (2.0-12.0); NEUTROPHILS # (AUTO) 10.7 /CMM (1.8-8.9); NEUTROPHILS % (AUTO) 77.8 % (43.0-81.0); WHITE BLOOD COUNT (AUTO) 13.7 K/uL (4.3-11.0)
[2016-06-02] MEDS: MEROPENEM 500 MG in IV NS 0.9% 50 ML IV SCH ×3 (05:06→21:29)
[2016-06-02 05:14] LABS: INR 1.4 (0.87-1.13); PROTHROMBIN TIME 15.2 SECS (9.5-12.7)
[2016-06-02 05:28] LABS: PLATELET COUNT (AUTO) 24 /CMM (150-450)
[2016-06-02 05:34] LABS: CALCIUM, SERUM 6.9 mg/dL (8.5-10.1); CREATININE 0.8 mg/dL (0.6-1.3); POTASSIUM 3.5 mmol/L (3.5-5.1)
[2016-06-02 05:58] LABS: LYMPHOCYTES % (MANUAL) 20 % (16-48)
[2016-06-02 05:59] LABS: ANISOCYTOSIS 1+; BASOPHILS % (MANUAL) 0 % (0.0-2.0); EOSINOPHILS % (MANUAL) 0 % (0-4); PLATELET ESTIMATE DECREASED
[2016-06-02 09:10] LABS: ABG BASE EXCESS -2.2 mmol/L; ABG HCO3 21.1 mmol/L; ABG NOTIFIED WHOM RN; ABG PCO2 30.8 mmHg (35.0-45.0); ABG PH 7.453 (7.350-7.450); ABG PO2 138.4 mmHg (75.0-100.0); ALLEN TEST Pass; AaDO2 183.5 mmHg; O2Hb 95.5 % (94.0-97.0)
[2016-06-02] MEDS: PANTOPRAZOLE 40 MG VIAL IV SCH (09:18)
[2016-06-02] MEDS: MULTIVITAMINS,THERAPEUTIC 1 UDTAB TABLET GT SCH (09:18)
[2016-06-02] MEDS: VANCOMYCIN 0.75 GM in IV D5W 250 ML IV SCH (09:18)
[2016-06-02] MEDS: Z GUARD REMEDY 2 OZ OINT TP SCH (09:21)
[2016-06-02] MEDS: NYSTATIN CREAM 15 GM TUBE TP SCH ×2 (09:21→18:52)
[2016-06-02] MEDS: HYDROGEL DRESSING 90 GM TUBE TP SCH (09:21)
[2016-06-02] MEDS ORDERED: POTASSIUM PHOSPHATE MM 15 MMOL in IV D5W 250 ML IV SCH ×2 (09:30→10:00)
[2016-06-02] MEDS: Magnesium 1GM/D5W 100ML PREMIX 100 ML IV SCH ×2 (10:31→11:46)
[2016-06-02] MEDS: CLOTRIMAZOLE/BETAMETASONE DIPROPIONATE 15 GM TUBE TP SCH ×2 (10:31→18:51)
[2016-06-02] MEDS: PETROLATUM,WHITE PACKET 5 GM PACKET TP PRN (10:37)
[2016-06-02] MEDS ORDERED: IV SET PRIMARY PUMP SET 1 EA INFUS.SET MC ONE (11:12)
[2016-06-02] MEDS: FIBERSOURCE HN 1,000 ML BOTTLE GT PRN (13:30)
[2016-06-02] MEDS: TRAZODONE 50 MG TABLET GT SCH (22:00)
[2016-06-02] MEDS: LEVOFLOXACIN 750 MG /D5W 150ML 750 MG in PREMIX 1 EA IV SCH (23:47)
[2016-06-03] VITALS (93 sets, daily range): BP systolic 61–121; BP diastolic 27–77
[2016-06-03] MEDS ORDERED: IV SET PRIMARY PUMP SET 1 EA INFUS.SET MC ONE ×4 (03:20→19:25)
[2016-06-03] MEDS: PROPOFOL 100 ML IV PRN ×4 (03:24→23:30)
[2016-06-03] MEDS: NOREPINEPHRINE 16 MG in IV D5W 500 ML IV PRN ×2 (03:35→14:57)
[2016-06-03 04:40] LABS: DIFF TOTAL % 100 %; HEMATOCRIT 29 % (33-45); HEMOGLOBIN 9.5 g/dL (11.5-14.8); LYMPHOCYTES # (AUTO) 1.5 /CMM (0.8-4.8); LYMPHOCYTES % (AUTO) 9.5 % (20.0-44.0); MEAN CORPUSCULAR HEMOGLOBIN 31 PG (26.0-33.0); MEAN CORPUSCULAR HGB CONC 33 g/dl (31.0-36.0); MEAN CORPUSCULAR VOLUME 94 fL (82-100); MONOCYTES # (AUTO) 0.6 /CMM (0.1-1.30); MONOCYTES % (AUTO) 3.7 % (2.0-12.0); NEUTROPHILS # (AUTO) 13.9 /CMM (1.8-8.9); NEUTROPHILS % (AUTO) 86.8 % (43.0-81.0); RED BLOOD CELL COUNT(AUTO) 3.06 MIL/uL (4.0-5.2)
[2016-06-03] MEDS: MEROPENEM 500 MG in IV NS 0.9% 50 ML IV SCH ×3 (04:55→20:45)
[2016-06-03 04:59] LABS: PLATELET COUNT (AUTO) 23 /CMM (150-450)
[2016-06-03 05:01] LABS: BILIRUBIN,TOTAL 3.1 mg/dL (0.2-1.0); CALCIUM, SERUM 6.7 mg/dL (8.5-10.1); CREATININE 0.8 mg/dL (0.6-1.3); POTASSIUM 3.9 mmol/L (3.5-5.1); TOTAL PROTEIN, SERUM 4.6 g/dL (6.4-8.2)
[2016-06-03 05:06] LABS: ALBUMIN 0.7 g/dL (3.4-5.0)
[2016-06-03 05:14] LABS: INR 1.23 (0.87-1.13); PROTHROMBIN TIME 13.3 SECS (9.5-12.7)
[2016-06-03 07:22] LABS: *SPE ALBUMIN 1.1 g/dL (2.9-4.4)
[2016-06-03 07:23] LABS: LYMPHOCYTES % (MANUAL) 12 % (16-48)
[2016-06-03 07:24] LABS: ANISOCYTOSIS 1+
[2016-06-03 07:26] LABS: PLATELET ESTIMATE DECREASED
[2016-06-03] MEDS: PANTOPRAZOLE 40 MG VIAL IV SCH (08:27)
[2016-06-03] MEDS: Z GUARD REMEDY 2 OZ OINT TP SCH (08:27)
[2016-06-03] MEDS: CLOTRIMAZOLE/BETAMETASONE DIPROPIONATE 15 GM TUBE TP SCH ×2 (08:27→16:21)
[2016-06-03] MEDS: MULTIVITAMINS,THERAPEUTIC 1 UDTAB TABLET GT SCH (08:27)
[2016-06-03] MEDS: NYSTATIN CREAM 15 GM TUBE TP SCH ×2 (08:28→16:21)
[2016-06-03] MEDS: HYDROGEL DRESSING 90 GM TUBE TP SCH (08:28)
[2016-06-03] MEDS: PETROLATUM,WHITE PACKET 5 GM PACKET TP PRN (08:28)
[2016-06-03] MEDS: VANCOMYCIN 0.75 GM in IV D5W 250 ML IV SCH (08:45)
[2016-06-03] MEDS: LORAZEPAM INJ 2 MG/ML VIAL IV PRN (10:23)
[2016-06-03 11:06] LABS: ABG BASE EXCESS -2.3 mmol/L; ABG HCO3 20.5 mmol/L; ABG PCO2 28.3 mmHg (35.0-45.0); ABG PH 7.477 (7.350-7.450); ABG PO2 95.3 mmHg (75.0-100.0); ABG TOTAL HEMOGLOBIN 9.6 G/dL (12.0-16.0); ALLEN TEST Pass; AaDO2 157.4 mmHg; O2Hb 94.6 % (94.0-97.0)
[2016-06-03] MEDS ORDERED: IV NS 0.9% 250 ML IV ONE (11:06)
[2016-06-03] MEDS: FIBERSOURCE HN 1,000 ML BOTTLE GT PRN (11:19)
[2016-06-03] MEDS ORDERED: NEUTRA PHOS 1 POWD.PACKET GT ONE (15:30)
[2016-06-03] MEDS: MORPHINE SULFATE INJ 2 MG/ML DISP.SYRIN IV PRN (19:13)
[2016-06-03] MEDS: FLUCONAZOLE (100 MG) 100 MG TABLET PO SCH (20:40)
[2016-06-03] MEDS: TRAZODONE 50 MG TABLET GT SCH (22:00)
[2016-06-03] MEDS: LEVOFLOXACIN 750 MG /D5W 150ML 750 MG in PREMIX 1 EA IV SCH (23:06)
[2016-06-04] VITALS (101 sets, daily range): BP systolic 89–130; BP diastolic 48–88
[2016-06-04] MEDS: NOREPINEPHRINE 16 MG in IV D5W 500 ML IV PRN (00:58)
[2016-06-04] MEDS: VANCOMYCIN 0.75 GM in IV D5W 250 ML IV SCH ×2 (02:00→20:48)
[2016-06-04 05:08] LABS: BILIRUBIN,TOTAL 2.6 mg/dL (0.2-1.0); CALCIUM, SERUM 6.8 mg/dL (8.5-10.1); CREATININE 0.8 mg/dL (0.6-1.3); PHOSPHORUS 2.2 mg/dL (2.5-4.9); POTASSIUM 4.5 mmol/L (3.5-5.1); TOTAL PROTEIN, SERUM 4.5 g/dL (6.4-8.2)
[2016-06-04 05:09] LABS: INR 1.23 (0.87-1.13); PROTHROMBIN TIME 13.3 SECS (9.5-12.7)
[2016-06-04] MEDS: MEROPENEM 500 MG in IV NS 0.9% 50 ML IV SCH ×3 (05:20→20:48)
[2016-06-04 05:27] LABS: ALBUMIN 0.6 g/dL (3.4-5.0)
[2016-06-04] MEDS: PROPOFOL 100 ML IV PRN ×2 (05:40→12:26)
[2016-06-04] MEDS ORDERED: BUMETANIDE INJ 8 MG in IV NS 0.9% 48 ML IV ONE (07:00)
[2016-06-04] MEDS: ALBUMIN 25% 12.5 GM in PREMIX 1 EA IV SCH ×2 (08:44→12:26)
[2016-06-04] MEDS: NYSTATIN CREAM 15 GM TUBE TP SCH ×2 (08:45→17:17)
[2016-06-04] MEDS: CLOTRIMAZOLE/BETAMETASONE DIPROPIONATE 15 GM TUBE TP SCH ×2 (08:46→17:17)
[2016-06-04] MEDS: Z GUARD REMEDY 2 OZ OINT TP SCH (08:46)
[2016-06-04] MEDS: HYDROGEL DRESSING 90 GM TUBE TP SCH (08:47)
[2016-06-04] MEDS ORDERED: IV SET PRIMARY PUMP SET 1 EA INFUS.SET MC ONE ×2 (08:48→18:35)
[2016-06-04] MEDS: MULTIVITAMINS,THERAPEUTIC 1 UDTAB TABLET GT SCH (08:51)
[2016-06-04] MEDS: PANTOPRAZOLE 40 MG VIAL IV SCH (08:51)
[2016-06-04] MEDS: FLUCONAZOLE (100 MG) 100 MG TABLET PO SCH (08:51)
[2016-06-04] MEDS: FIBERSOURCE HN 1,000 ML BOTTLE GT PRN (09:20)
[2016-06-04] MEDS: HYDROCORTISONE SOD SUCCINATE 100 MG/2 ML VIAL IV SCH ×2 (14:35→17:14)
[2016-06-04] MEDS ORDERED: NEUTRA PHOS 1 POWD.PACKET GT ONE (15:30)
[2016-06-04 20:18] LABS: BASOPHILS # (AUTO) 0.2 /CMM (0.0-0.2); BASOPHILS % (AUTO) 0.9 % (0.0-2.0); DIFF TOTAL % 100 %; EOSINOPHILS # (AUTO) 0.1 /CMM (0.0-0.7); EOSINOPHILS % (AUTO) 0.4 % (0.0-6.0); HEMATOCRIT 26 % (33-45); HEMOGLOBIN 8.2 g/dL (11.5-14.8); LYMPHOCYTES # (AUTO) 2.7 /CMM (0.8-4.8); LYMPHOCYTES % (AUTO) 15.5 % (20.0-44.0); MEAN CORPUSCULAR HEMOGLOBIN 31 PG (26.0-33.0); MEAN CORPUSCULAR HGB CONC 32 g/dl (31.0-36.0); MEAN CORPUSCULAR VOLUME 99 fL (82-100); MONOCYTES # (AUTO) 1.4 /CMM (0.1-1.30); MONOCYTES % (AUTO) 8.1 % (2.0-12.0); NEUTROPHILS % (AUTO) 75.1 % (43.0-81.0); RED BLOOD CELL COUNT(AUTO) 2.63 MIL/uL (4.0-5.2); WHITE BLOOD COUNT (AUTO) 17.3 K/uL (4.3-11.0)
[2016-06-04 20:20] LABS: PLATELET COUNT (AUTO) 35 /CMM (150-450)
[2016-06-04 20:23] LABS: ANISOCYTOSIS 1+; LYMPHOCYTES % (MANUAL) 12 % (16-48); PLATELET ESTIMATE DECREASED
[2016-06-04] MEDS: TRAZODONE 50 MG TABLET GT SCH (21:00)
[2016-06-05] VITALS (101 sets, daily range): BP systolic 85–133; BP diastolic 16–94
[2016-06-05] MEDS: FIBERSOURCE HN 1,000 ML BOTTLE GT PRN (04:57)
[2016-06-05] MEDS: MEROPENEM 500 MG in IV NS 0.9% 50 ML IV SCH ×3 (04:57→20:47)
[2016-06-05 05:13] LABS: INR 1.25 (0.87-1.13); PROTHROMBIN TIME 13.5 SECS (9.5-12.7)
[2016-06-05 05:16] LABS: BILIRUBIN,TOTAL 3.6 mg/dL (0.2-1.0); CALCIUM, SERUM 7.3 mg/dL (8.5-10.1); CREATININE 0.9 mg/dL (0.6-1.3); PHOSPHORUS 4.2 mg/dL (2.5-4.9); POTASSIUM 4.1 mmol/L (3.5-5.1); TOTAL PROTEIN, SERUM 5.3 g/dL (6.4-8.2)
[2016-06-05 05:22] LABS: ALBUMIN 1.2 g/dL (3.4-5.0)
[2016-06-05] MEDS ORDERED: ALBUMIN 25% 12.5 GM in PREMIX 1 EA IV ONE ×2 (08:30→12:30)
[2016-06-05] MEDS ORDERED: IV SET PRIMARY PUMP SET 1 EA INFUS.SET MC ONE ×2 (08:59→10:03)
[2016-06-05] MEDS ORDERED: BUMETANIDE INJ 8 MG in IV NS 0.9% 48 ML IV ONE (09:00)
[2016-06-05] MEDS: FLUCONAZOLE (100 MG) 100 MG TABLET PO SCH (09:06)
[2016-06-05] MEDS: HYDROCORTISONE SOD SUCCINATE 100 MG/2 ML VIAL IV SCH ×3 (09:06→16:00)
[2016-06-05] MEDS: HYDROGEL DRESSING 90 GM TUBE TP SCH (09:06)
[2016-06-05] MEDS: MULTIVITAMINS,THERAPEUTIC 1 UDTAB TABLET GT SCH (09:06)
[2016-06-05] MEDS: PANTOPRAZOLE 40 MG VIAL IV SCH (09:06)
[2016-06-05] MEDS: Z GUARD REMEDY 2 OZ OINT TP SCH (09:07)
[2016-06-05] MEDS: NYSTATIN CREAM 15 GM TUBE TP SCH ×2 (09:07→16:00)
[2016-06-05] MEDS: CLOTRIMAZOLE/BETAMETASONE DIPROPIONATE 15 GM TUBE TP SCH ×2 (09:07→16:01)
[2016-06-05 09:59] LABS: ABG BASE EXCESS 2.9 mmol/L; ABG PCO2 28.4 mmHg (35.0-45.0); ABG PH 7.562 (7.350-7.450); ABG PO2 70.5 mmHg (75.0-100.0); ABG TOTAL HEMOGLOBIN 8.2 G/dL (12.0-16.0); ALLEN TEST Pass; O2Hb 91.6 % (94.0-97.0)
[2016-06-05] MEDS: PROPOFOL 100 ML IV PRN ×2 (10:07→17:47)
[2016-06-05] MEDS: NOREPINEPHRINE 16 MG in IV D5W 500 ML IV PRN (12:23)
[2016-06-05] MEDS: LACTULOSE 10 G/15 ML UDC (PYXIS) PO SCH ×2 (15:03→20:48)
[2016-06-05] MEDS: VANCOMYCIN 0.75 GM in IV D5W 250 ML IV SCH (15:44)
[2016-06-05] MEDS: TRAZODONE 50 MG TABLET GT SCH (21:03)
[2016-06-05] MEDS: LORAZEPAM INJ 2 MG/ML VIAL IV PRN (22:06)
[2016-06-06] VITALS (105 sets, daily range): BP systolic 91–126; BP diastolic 48–90
[2016-06-06 01:22] LABS: ABG BASE EXCESS 5.2 mmol/L; ABG HCO3 27.1 mmol/L; ABG PCO2 29.2 mmHg (35.0-45.0); ABG PH 7.585 (7.350-7.450); ABG PO2 70.6 mmHg (75.0-100.0); ALLEN TEST Pass; O2Hb 90.6 % (94.0-97.0)
[2016-06-06] MEDS: LACTULOSE 10 G/15 ML UDC (PYXIS) PO SCH ×4 (02:49→20:22)
[2016-06-06 04:46] LABS: CALCIUM, SERUM 7.5 mg/dL (8.5-10.1); CREATININE 0.9 mg/dL (0.6-1.3)
[2016-06-06 04:56] LABS: POTASSIUM 2.7 mmol/L (3.5-5.1)
[2016-06-06 05:06] LABS: BASOPHILS % (AUTO) 0.2 % (0.0-2.0); DIFF TOTAL % 100 %; HEMATOCRIT 23 % (33-45); HEMOGLOBIN 7.5 g/dL (11.5-14.8); LYMPHOCYTES # (AUTO) 1.5 /CMM (0.8-4.8); LYMPHOCYTES % (AUTO) 12.5 % (20.0-44.0); MEAN CORPUSCULAR HEMOGLOBIN 33 PG (26.0-33.0); MEAN CORPUSCULAR HGB CONC 33 g/dl (31.0-36.0); MEAN CORPUSCULAR VOLUME 98 fL (82-100); MONOCYTES # (AUTO) 0.6 /CMM (0.1-1.30); MONOCYTES % (AUTO) 5.3 % (2.0-12.0); NEUTROPHILS # (AUTO) 9.7 /CMM (1.8-8.9); PLATELET COUNT (AUTO) 85 /CMM (150-450); WHITE BLOOD COUNT (AUTO) 11.9 K/uL (4.3-11.0)
[2016-06-06] MEDS: PROPOFOL 100 ML IV PRN ×3 (05:42→21:19)
[2016-06-06] MEDS: MEROPENEM 500 MG in IV NS 0.9% 50 ML IV SCH ×3 (05:42→20:23)
[2016-06-06] MEDS: FIBERSOURCE HN 1,000 ML BOTTLE GT PRN (05:53)
[2016-06-06 05:54] LABS: ANISOCYTOSIS 2+; BAND % (MANUAL) 6 % (0.0-5.0); BASOPHILS % (MANUAL) 0 % (0.0-2.0); EOSINOPHILS % (MANUAL) 0 % (0-4); LYMPHOCYTES % (MANUAL) 10 % (16-48); PLATELET ESTIMATE DECREASED
[2016-06-06 05:55] LABS: TARGET CELLS 1+
[2016-06-06] MEDS ORDERED: IV SET PRIMARY PUMP SET 1 EA INFUS.SET MC ONE ×2 (06:23→14:57)
[2016-06-06] MEDS ORDERED: POTASSIUM CL. PREMIX PERIPHER. 50 ML ONE (06:23)
[2016-06-06] MEDS ORDERED: POTASSIUM CL. PREMIX PERIPHER. 50 ML IV SCH (06:30)
[2016-06-06] MEDS: MULTIVITAMINS,THERAPEUTIC 1 UDTAB TABLET GT SCH (08:08)
[2016-06-06] MEDS: HYDROCORTISONE SOD SUCCINATE 100 MG/2 ML VIAL IV SCH ×3 (08:08→16:34)
[2016-06-06] MEDS: PANTOPRAZOLE 40 MG VIAL IV SCH (08:08)
[2016-06-06] MEDS: FLUCONAZOLE (100 MG) 100 MG TABLET PO SCH (08:11)
[2016-06-06] MEDS: POTASSIUM CHLORIDE 20 MEQ POWDER PACKET GT SCH ×5 (08:11→13:08)
[2016-06-06] MEDS: Z GUARD REMEDY 2 OZ OINT TP SCH (08:17)
[2016-06-06] MEDS: HYDROGEL DRESSING 90 GM TUBE TP SCH (08:17)
[2016-06-06] MEDS: NYSTATIN CREAM 15 GM TUBE TP SCH ×2 (08:18→16:35)
[2016-06-06] MEDS: VANCOMYCIN 0.75 GM in IV D5W 250 ML IV SCH (08:18)
[2016-06-06] MEDS: CLOTRIMAZOLE/BETAMETASONE DIPROPIONATE 15 GM TUBE TP SCH ×2 (08:18→16:35)
[2016-06-06] MEDS: MORPHINE SULFATE INJ 2 MG/ML DISP.SYRIN IV PRN (10:26)
[2016-06-06] MEDS ORDERED: IV NS 0.9% 250 ML IV ONE ×2 (15:09→20:57)
[2016-06-06] MEDS: NOREPINEPHRINE 16 MG in IV D5W 500 ML IV PRN (15:13)
[2016-06-06] MEDS ORDERED: IV SET PRIMARY 1 EA INFUS.SET MC ONE (20:44)
[2016-06-06] MEDS: TRAZODONE 50 MG TABLET GT SCH (22:30)
[2016-06-07] VITALS (92 sets, daily range): BP systolic 93–134; BP diastolic 54–90
[2016-06-07] MEDS: FIBERSOURCE HN 1,000 ML BOTTLE GT PRN ×2 (00:52→17:21)
[2016-06-07] MEDS: VANCOMYCIN 0.75 GM in IV D5W 250 ML IV SCH ×2 (02:23→20:40)
[2016-06-07] MEDS: LACTULOSE 10 G/15 ML UDC (PYXIS) PO SCH ×4 (02:23→16:21)
[2016-06-07] MEDS ORDERED: IV D5W 250 ML IV ONE (04:33)
[2016-06-07] MEDS ORDERED: IV SET PRIMARY PUMP SET 1 EA INFUS.SET MC ONE (04:33)
[2016-06-07] MEDS: PROPOFOL 100 ML IV PRN ×3 (04:40→20:51)
[2016-06-07] MEDS: MEROPENEM 500 MG in IV NS 0.9% 50 ML IV SCH ×3 (04:42→21:47)
[2016-06-07 05:18] LABS: BASOPHILS % (AUTO) 0.1 % (0.0-2.0); DIFF TOTAL % 100 %; EOSINOPHILS % (AUTO) 0.1 % (0.0-6.0); HEMATOCRIT 25 % (33-45); HEMOGLOBIN 8.4 g/dL (11.5-14.8); LYMPHOCYTES # (AUTO) 1.4 /CMM (0.8-4.8); LYMPHOCYTES % (AUTO) 10.1 % (20.0-44.0); MEAN CORPUSCULAR HEMOGLOBIN 32 PG (26.0-33.0); MEAN CORPUSCULAR HGB CONC 33 g/dl (31.0-36.0); MEAN CORPUSCULAR VOLUME 97 fL (82-100); MONOCYTES # (AUTO) 0.3 /CMM (0.1-1.30); MONOCYTES % (AUTO) 1.9 % (2.0-12.0); NEUTROPHILS % (AUTO) 87.8 % (43.0-81.0); PLATELET COUNT (AUTO) 88 /CMM (150-450); RED BLOOD CELL COUNT(AUTO) 2.63 MIL/uL (4.0-5.2); WHITE BLOOD COUNT (AUTO) 13.7 K/uL (4.3-11.0)
[2016-06-07 05:27] LABS: CALCIUM, SERUM 7.4 mg/dL (8.5-10.1); CREATININE 0.7 mg/dL (0.6-1.3); POTASSIUM 3.3 mmol/L (3.5-5.1)
[2016-06-07 05:42] LABS: ANISOCYTOSIS 2+; BAND % (MANUAL) 2 % (0.0-5.0); BURR CELLS 1+; LYMPHOCYTES % (MANUAL) 8 % (16-48); PLATELET ESTIMATE DECREASED; POIKILOCYTOSIS 1+
[2016-06-07] MEDS: MORPHINE SULFATE INJ 2 MG/ML DISP.SYRIN IV PRN ×2 (06:16→14:30)
[2016-06-07] MEDS: NOREPINEPHRINE 16 MG in IV D5W 500 ML IV PRN (07:35)
[2016-06-07] MEDS: LORAZEPAM INJ 2 MG/ML VIAL IV PRN ×2 (07:47→18:29)
[2016-06-07] MEDS: PANTOPRAZOLE 40 MG VIAL IV SCH (08:10)
[2016-06-07] MEDS: HYDROCORTISONE SOD SUCCINATE 100 MG/2 ML VIAL IV SCH ×3 (08:10→16:21)
[2016-06-07] MEDS: HYDROGEL DRESSING 90 GM TUBE TP SCH (08:11)
[2016-06-07] MEDS: Z GUARD REMEDY 2 OZ OINT TP SCH (08:11)
[2016-06-07] MEDS: MULTIVITAMINS,THERAPEUTIC 1 UDTAB TABLET GT SCH (08:11)
[2016-06-07] MEDS: FLUCONAZOLE (100 MG) 100 MG TABLET PO SCH (08:11)
[2016-06-07] MEDS: NYSTATIN CREAM 15 GM TUBE TP SCH ×2 (08:12→16:22)
[2016-06-07] MEDS: CLOTRIMAZOLE/BETAMETASONE DIPROPIONATE 15 GM TUBE TP SCH ×2 (08:12→16:22)
[2016-06-07] MEDS: PETROLATUM,WHITE PACKET 5 GM PACKET TP PRN (08:12)
[2016-06-07] MEDS ORDERED: POTASSIUM CHLORIDE 20 MEQ POWDER PACKET GT ONE (10:00)
[2016-06-07] MEDS ORDERED: IV NS 0.9% 250 ML IV ONE (12:30)
[2016-06-07] MEDS ORDERED: SECONDARY IV SET 1 EA INFUS.SET MC ONE (12:30)
[2016-06-07] MEDS: TRAZODONE 50 MG TABLET GT SCH (22:05)
[2016-06-08] VITALS (53 sets, daily range): BP systolic 103–133; BP diastolic 53–88
[2016-06-08] MEDS ORDERED: IV D5W 250 ML IV ONE ×2 (00:49→22:01)
[2016-06-08] MEDS ORDERED: IV SET PRIMARY PUMP SET 1 EA INFUS.SET MC ONE ×3 (00:49→22:01)
[2016-06-08] MEDS ORDERED: IV NS 0.9% 250 ML IV ONE (00:50)
[2016-06-08 04:57] LABS: CALCIUM, SERUM 6.9 mg/dL (8.5-10.1); CREATININE 0.6 mg/dL (0.6-1.3); POTASSIUM 3.7 mmol/L (3.5-5.1)
[2016-06-08] MEDS: MEROPENEM 500 MG in IV NS 0.9% 50 ML IV SCH ×3 (05:08→21:15)
[2016-06-08] MEDS: PROPOFOL 100 ML IV PRN ×3 (06:03→19:44)
[2016-06-08] MEDS: LACTULOSE 10 G/15 ML UDC (PYXIS) PO SCH ×2 (09:22→17:42)
[2016-06-08] MEDS: PANTOPRAZOLE 40 MG VIAL IV SCH (09:22)
[2016-06-08] MEDS: FLUCONAZOLE (100 MG) 100 MG TABLET PO SCH (09:22)
[2016-06-08] MEDS: MULTIVITAMINS,THERAPEUTIC 1 UDTAB TABLET GT SCH (09:22)
[2016-06-08] MEDS: HYDROCORTISONE SOD SUCCINATE 100 MG/2 ML VIAL IV SCH ×3 (09:22→17:42)
[2016-06-08] MEDS: HYDROGEL DRESSING 90 GM TUBE TP SCH (09:23)
[2016-06-08] MEDS: CLOTRIMAZOLE/BETAMETASONE DIPROPIONATE 15 GM TUBE TP SCH ×2 (09:24→17:42)
[2016-06-08] MEDS: NYSTATIN CREAM 15 GM TUBE TP SCH ×2 (09:26→17:43)
[2016-06-08] MEDS: Z GUARD REMEDY 2 OZ OINT TP SCH (09:27)
[2016-06-08 10:27] LABS: ABG BASE EXCESS 3.4 mmol/L; ABG HCO3 25.9 mmol/L; ABG PCO2 31.1 mmHg (35.0-45.0); ABG PH 7.539 (7.350-7.450); ABG PO2 72.7 mmHg (75.0-100.0); ABG TOTAL HEMOGLOBIN 8.3 G/dL (12.0-16.0); ALLEN TEST Pass; AaDO2 176.7 mmHg; O2Hb 91.3 % (94.0-97.0)
[2016-06-08 12:26] LABS: BASOPHILS % (AUTO) 0.1 % (0.0-2.0); DIFF TOTAL % 100 %; HEMATOCRIT 24 % (33-45); HEMOGLOBIN 7.7 g/dL (11.5-14.8); LYMPHOCYTES # (AUTO) 1.5 /CMM (0.8-4.8); LYMPHOCYTES % (AUTO) 14.3 % (20.0-44.0); MEAN CORPUSCULAR HEMOGLOBIN 32 PG (26.0-33.0); MEAN CORPUSCULAR HGB CONC 32 g/dl (31.0-36.0); MEAN CORPUSCULAR VOLUME 99 fL (82-100); MONOCYTES # (AUTO) 0.3 /CMM (0.1-1.30); MONOCYTES % (AUTO) 2.4 % (2.0-12.0); NEUTROPHILS # (AUTO) 8.7 /CMM (1.8-8.9); NEUTROPHILS % (AUTO) 83.2 % (43.0-81.0); PLATELET COUNT (AUTO) 97 /CMM (150-450); RED BLOOD CELL COUNT(AUTO) 2.44 MIL/uL (4.0-5.2); WHITE BLOOD COUNT (AUTO) 10.5 K/uL (4.3-11.0)
[2016-06-08] MEDS: MORPHINE SULFATE INJ 2 MG/ML DISP.SYRIN IV PRN (13:21)
[2016-06-08 13:35] LABS: BAND % (MANUAL) 6 % (0.0-5.0); LYMPHOCYTES % (MANUAL) 14 % (16-48); PLATELET ESTIMATE DECREASED
[2016-06-08 13:36] LABS: ANISOCYTOSIS 2+; HYPOCHROMASIA 1+; POLYCHROMASIA 1+
[2016-06-08] MEDS: VANCOMYCIN 0.75 GM in IV D5W 250 ML IV SCH (14:20)
[2016-06-08] MEDS: ACETAMINOPHEN 650 MG/20.3 ML UDC PO PRN ×2 (16:00→20:01)
[2016-06-08] MEDS: TRAZODONE 50 MG TABLET GT SCH (21:22)
[2016-06-09] VITALS (56 sets, daily range): BP systolic 106–133; BP diastolic 65–95
[2016-06-09] MEDS: PROPOFOL 100 ML IV PRN (02:27)
[2016-06-09] MEDS: MEROPENEM 500 MG in IV NS 0.9% 50 ML IV SCH ×3 (04:33→20:20)
[2016-06-09 04:49] LABS: BASOPHILS % (AUTO) 0.2 % (0.0-2.0); DIFF TOTAL % 100 %; EOSINOPHILS # (AUTO) 0.1 /CMM (0.0-0.7); HEMATOCRIT 23 % (33-45); HEMOGLOBIN 7.4 g/dL (11.5-14.8); LYMPHOCYTES # (AUTO) 1.3 /CMM (0.8-4.8); LYMPHOCYTES % (AUTO) 12.8 % (20.0-44.0); MEAN CORPUSCULAR HEMOGLOBIN 33 PG (26.0-33.0); MEAN CORPUSCULAR HGB CONC 33 g/dl (31.0-36.0); MEAN CORPUSCULAR VOLUME 100 fL (82-100); MONOCYTES # (AUTO) 0.2 /CMM (0.1-1.30); MONOCYTES % (AUTO) 2.4 % (2.0-12.0); NEUTROPHILS # (AUTO) 8.6 /CMM (1.8-8.9); NEUTROPHILS % (AUTO) 83.6 % (43.0-81.0); PLATELET COUNT (AUTO) 124 /CMM (150-450); RED BLOOD CELL COUNT(AUTO) 2.28 MIL/uL (4.0-5.2); WHITE BLOOD COUNT (AUTO) 10.3 K/uL (4.3-11.0)
[2016-06-09 05:03] LABS: CALCIUM, SERUM 7.4 mg/dL (8.5-10.1); CREATININE 0.6 mg/dL (0.6-1.3); POTASSIUM 3.4 mmol/L (3.5-5.1)
[2016-06-09] MEDS: POTASSIUM CHLORIDE 20 MEQ TAB.PRT.SR PO SCH ×3 (08:30→10:10)
[2016-06-09] MEDS: MULTIVITAMINS,THERAPEUTIC 1 UDTAB TABLET GT SCH (08:30)
[2016-06-09] MEDS: FLUCONAZOLE (100 MG) 100 MG TABLET PO SCH (08:30)
[2016-06-09] MEDS: HYDROCORTISONE SOD SUCCINATE 100 MG/2 ML VIAL IV SCH ×3 (08:30→17:56)
[2016-06-09] MEDS: PANTOPRAZOLE 40 MG VIAL IV SCH (08:30)
[2016-06-09] MEDS: LACTULOSE 10 G/15 ML UDC (PYXIS) PO SCH ×2 (08:30→17:56)
[2016-06-09] MEDS: VANCOMYCIN 0.75 GM in IV D5W 250 ML IV SCH (08:38)
[2016-06-09] MEDS: Z GUARD REMEDY 2 OZ OINT TP SCH (08:42)
[2016-06-09] MEDS: HYDROGEL DRESSING 90 GM TUBE TP SCH (08:42)
[2016-06-09] MEDS: NYSTATIN CREAM 15 GM TUBE TP SCH ×2 (08:43→17:57)
[2016-06-09] MEDS: CLOTRIMAZOLE/BETAMETASONE DIPROPIONATE 15 GM TUBE TP SCH ×2 (08:43→17:58)
[2016-06-09 11:26] LABS: ABG BASE EXCESS 4.2 mmol/L; ABG HCO3 27.7 mmol/L; ABG PCO2 36.9 mmHg (35.0-45.0); ABG PH 7.494 (7.350-7.450); ABG PO2 78.7 mmHg (75.0-100.0); ABG TOTAL HEMOGLOBIN 8.6 G/dL (12.0-16.0); ALLEN TEST Pass; AaDO2 164.1 mmHg; O2Hb 91.4 % (94.0-97.0)
[2016-06-09] MEDS ORDERED: IV NS 0.9% 250 ML IV ONE ×2 (12:36→14:33)
[2016-06-09] MEDS: MORPHINE SULFATE INJ 2 MG/ML DISP.SYRIN IV PRN ×2 (12:40→20:20)
[2016-06-09] MEDS: FIBERSOURCE HN 1,000 ML BOTTLE GT PRN (14:09)
[2016-06-09] MEDS ORDERED: BLOOD IV SET 1 EA INFUS.SET MC ONE (14:33)
[2016-06-09] MEDS: TRAZODONE 50 MG TABLET GT SCH (22:03)
[2016-06-10] VITALS (28 sets, daily range): BP systolic 113–133; BP diastolic 72–88
[2016-06-10] MEDS: VANCOMYCIN 0.75 GM in IV D5W 250 ML IV SCH (02:27)
[2016-06-10] MEDS: MORPHINE SULFATE INJ 2 MG/ML DISP.SYRIN IV PRN (02:46)
[2016-06-10 04:32] LABS: DIFF TOTAL % 100 %; EOSINOPHILS # (AUTO) 0.1 /CMM (0.0-0.7); EOSINOPHILS % (AUTO) 0.9 % (0.0-6.0); HEMATOCRIT 28 % (33-45); LYMPHOCYTES # (AUTO) 0.9 /CMM (0.8-4.8); MEAN CORPUSCULAR HEMOGLOBIN 30 PG (26.0-33.0); MEAN CORPUSCULAR HGB CONC 33 g/dl (31.0-36.0); MEAN CORPUSCULAR VOLUME 93 fL (82-100); MONOCYTES # (AUTO) 0.3 /CMM (0.1-1.30); MONOCYTES % (AUTO) 3.2 % (2.0-12.0); NEUTROPHILS # (AUTO) 8.9 /CMM (1.8-8.9); NEUTROPHILS % (AUTO) 86.9 % (43.0-81.0); PLATELET COUNT (AUTO) 143 /CMM (150-450); RED BLOOD CELL COUNT(AUTO) 2.97 MIL/uL (4.0-5.2); WHITE BLOOD COUNT (AUTO) 10.3 K/uL (4.3-11.0)
[2016-06-10 04:41] LABS: CALCIUM, SERUM 7.5 mg/dL (8.5-10.1); CREATININE 0.6 mg/dL (0.6-1.3); POTASSIUM 3.8 mmol/L (3.5-5.1)
[2016-06-10] MEDS: MEROPENEM 500 MG in IV NS 0.9% 50 ML IV SCH ×3 (05:46→20:59)
[2016-06-10] MEDS: LACTULOSE 10 G/15 ML UDC (PYXIS) PO SCH ×2 (09:49→17:48)
[2016-06-10] MEDS: PANTOPRAZOLE 40 MG VIAL IV SCH (09:49)
[2016-06-10] MEDS: MULTIVITAMINS,THERAPEUTIC 1 UDTAB TABLET GT SCH (09:49)
[2016-06-10] MEDS: HYDROCORTISONE SOD SUCCINATE 100 MG/2 ML VIAL IV SCH ×3 (09:49→17:48)
[2016-06-10] MEDS: FLUCONAZOLE (100 MG) 100 MG TABLET PO SCH (09:49)
[2016-06-10] MEDS: Z GUARD REMEDY 2 OZ OINT TP SCH (09:50)
[2016-06-10] MEDS: HYDROGEL DRESSING 90 GM TUBE TP SCH (09:51)
[2016-06-10] MEDS ORDERED: IV NS 0.9% 250 ML IV ONE (09:51)
[2016-06-10] MEDS: CLOTRIMAZOLE/BETAMETASONE DIPROPIONATE 15 GM TUBE TP SCH ×2 (09:51→17:47)
[2016-06-10] MEDS: NYSTATIN CREAM 15 GM TUBE TP SCH ×2 (09:51→17:48)
[2016-06-10] MEDS: FIBERSOURCE HN 1,000 ML BOTTLE GT PRN (09:56)
[2016-06-10 10:33] LABS: ABG BASE EXCESS 3.3 mmol/L; ABG HCO3 26.7 mmol/L; ABG PH 7.488 (7.350-7.450); ABG PO2 90.8 mmHg (75.0-100.0); ABG TOTAL HEMOGLOBIN 9.8 G/dL (12.0-16.0); ALLEN TEST Pass; O2Hb 94.2 % (94.0-97.0)
[2016-06-10] MEDS ORDERED: DC PROPOFOL WHEN EXTUBATED XX PRN (11:00)
[2016-06-10] MEDS: TRAZODONE 50 MG TABLET GT SCH (20:59)
[2016-06-11] VITALS (24 sets, daily range): BP systolic 105–139; BP diastolic 70–88
[2016-06-11] MEDS: FIBERSOURCE HN 1,000 ML BOTTLE GT PRN ×2 (02:18→19:52)
[2016-06-11] MEDS: MEROPENEM 500 MG in IV NS 0.9% 50 ML IV SCH (04:21)
[2016-06-11 05:28] LABS: DIFF TOTAL % 100 %; HEMATOCRIT 27 % (33-45); HEMOGLOBIN 8.9 g/dL (11.5-14.8); LYMPHOCYTES # (AUTO) 0.6 /CMM (0.8-4.8); LYMPHOCYTES % (AUTO) 4.9 % (20.0-44.0); MEAN CORPUSCULAR HEMOGLOBIN 31 PG (26.0-33.0); MEAN CORPUSCULAR HGB CONC 33 g/dl (31.0-36.0); MEAN CORPUSCULAR VOLUME 94 fL (82-100); MONOCYTES # (AUTO) 0.3 /CMM (0.1-1.30); MONOCYTES % (AUTO) 2.5 % (2.0-12.0); NEUTROPHILS # (AUTO) 11.7 /CMM (1.8-8.9); NEUTROPHILS % (AUTO) 92.6 % (43.0-81.0); PLATELET COUNT (AUTO) 174 /CMM (150-450); RED BLOOD CELL COUNT(AUTO) 2.89 MIL/uL (4.0-5.2); WHITE BLOOD COUNT (AUTO) 12.6 K/uL (4.3-11.0)
[2016-06-11 05:39] LABS: CALCIUM, SERUM 7.8 mg/dL (8.5-10.1); CREATININE 0.5 mg/dL (0.6-1.3); PHOSPHORUS 2.9 mg/dL (2.5-4.9); POTASSIUM 3.6 mmol/L (3.5-5.1)
[2016-06-11] MEDS ORDERED: POTASSIUM CHLORIDE 20 MEQ TAB.PRT.SR PO SCH (07:00)
[2016-06-11] MEDS ORDERED: BUMETANIDE INJ 8 MG in IV NS 0.9% 48 ML IV ONE (07:00)
[2016-06-11] MEDS ORDERED: IV SET PRIMARY PUMP SET 1 EA INFUS.SET MC ONE ×2 (08:16→17:07)
[2016-06-11] MEDS ORDERED: POTASSIUM CHLORIDE 20 MEQ POWDER PACKET PEG ONE (08:30)
[2016-06-11] MEDS: FLUCONAZOLE (100 MG) 100 MG TABLET PO SCH (08:33)
[2016-06-11] MEDS: HYDROCORTISONE SOD SUCCINATE 100 MG/2 ML VIAL IV SCH ×2 (08:33→17:31)
[2016-06-11] MEDS: MULTIVITAMINS,THERAPEUTIC 1 UDTAB TABLET GT SCH (08:33)
[2016-06-11] MEDS: PANTOPRAZOLE 40 MG/PACK PACK NG SCH (08:33)
[2016-06-11] MEDS: HYDROGEL DRESSING 90 GM TUBE TP SCH (08:34)
[2016-06-11] MEDS: LACTULOSE 10 G/15 ML UDC (PYXIS) PO SCH (08:34)
[2016-06-11] MEDS: CLOTRIMAZOLE/BETAMETASONE DIPROPIONATE 15 GM TUBE TP SCH ×2 (08:35→17:31)
[2016-06-11] MEDS: NYSTATIN CREAM 15 GM TUBE TP SCH ×2 (08:35→17:31)
[2016-06-11] MEDS: Z GUARD REMEDY 2 OZ OINT TP SCH (08:35)
[2016-06-11 09:46] LABS: ABG BASE EXCESS 4.3 mmol/L; ABG HCO3 27.8 mmol/L; ABG PCO2 37.3 mmHg (35.0-45.0); ABG PO2 55.6 mmHg (75.0-100.0); ABG TOTAL HEMOGLOBIN 11.2 G/dL (12.0-16.0); ALLEN TEST Pass; AaDO2 331.2 mmHg; O2Hb 86.5 % (94.0-97.0)
[2016-06-11] MEDS: ACETYLCYSTEINE 10% SOLN 400 MG/4 ML VIAL NEB SCH ×2 (17:07→23:27)
[2016-06-11] MEDS ORDERED: IV NS 0.9% 250 ML IV ONE (17:08)
[2016-06-11] MEDS: MINERAL OIL/PETROL OINT 396 GM JAR TP PRN ×2 (17:30)
[2016-06-11] MEDS: MIRTAZAPINE 15 MG TABLET PO SCH (21:35)
[2016-06-11] MEDS: ALBUTEROL FS 2.5 MG/0.5 ML VIAL.NEB NEB PRN (23:27)
[2016-06-12] VITALS (24 sets, daily range): BP systolic 108–140; BP diastolic 71–91
[2016-06-12 05:27] LABS: BASOPHILS % (AUTO) 0.1 % (0.0-2.0); DIFF TOTAL % 100 %; HEMATOCRIT 29 % (33-45); HEMOGLOBIN 9.7 g/dL (11.5-14.8); LYMPHOCYTES # (AUTO) 0.9 /CMM (0.8-4.8); LYMPHOCYTES % (AUTO) 8.2 % (20.0-44.0); MEAN CORPUSCULAR HEMOGLOBIN 31 PG (26.0-33.0); MEAN CORPUSCULAR HGB CONC 33 g/dl (31.0-36.0); MEAN CORPUSCULAR VOLUME 94 fL (82-100); MONOCYTES # (AUTO) 0.4 /CMM (0.1-1.30); MONOCYTES % (AUTO) 3.8 % (2.0-12.0); NEUTROPHILS # (AUTO) 9.7 /CMM (1.8-8.9); NEUTROPHILS % (AUTO) 87.9 % (43.0-81.0); PLATELET COUNT (AUTO) 234 /CMM (150-450); RED BLOOD CELL COUNT(AUTO) 3.11 MIL/uL (4.0-5.2)
[2016-06-12 06:02] LABS: CALCIUM, SERUM 7.9 mg/dL (8.5-10.1); CREATININE 0.5 mg/dL (0.6-1.3); PHOSPHORUS 3.1 mg/dL (2.5-4.9); POTASSIUM 3.3 mmol/L (3.5-5.1)
[2016-06-12] MEDS: ACETYLCYSTEINE 10% SOLN 400 MG/4 ML VIAL NEB SCH ×3 (07:23→23:20)
[2016-06-12 08:24] LABS: ABG BASE EXCESS 9.8 mmol/L; ABG HCO3 33.7 mmol/L; ABG PCO2 42.6 mmHg (35.0-45.0); ABG PH 7.516 (7.350-7.450); ABG PO2 64.9 mmHg (75.0-100.0); ABG TOTAL HEMOGLOBIN 10.8 G/dL (12.0-16.0); ALLEN TEST Pass; AaDO2 113.4 mmHg; O2Hb 90.4 % (94.0-97.0)
[2016-06-12] MEDS ORDERED: POTASSIUM CHLORIDE 20 MEQ TAB.PRT.SR PO SCH (09:00)
[2016-06-12] MEDS ORDERED: POTASSIUM CHLORIDE 20 MEQ POWDER PACKET GT SCH (09:00)
[2016-06-12] MEDS ORDERED: BUMETANIDE INJ 8 MG in IV NS 0.9% 48 ML IV ONE (09:00)
[2016-06-12] MEDS: NYSTATIN CREAM 15 GM TUBE TP SCH (09:00)
[2016-06-12] MEDS: MULTIVITAMINS,THERAPEUTIC 1 UDTAB TABLET GT SCH (09:13)
[2016-06-12] MEDS: HYDROCORTISONE SOD SUCCINATE 100 MG/2 ML VIAL IV SCH ×2 (09:13→17:16)
[2016-06-12] MEDS: PANTOPRAZOLE 40 MG/PACK PACK NG SCH (09:13)
[2016-06-12] MEDS: FLUCONAZOLE (100 MG) 100 MG TABLET PO SCH (09:13)
[2016-06-12] MEDS: POTASSIUM CHLORIDE 20 MEQ POWDER PACKET GT SCH ×3 (09:13→13:23)
[2016-06-12] MEDS: Z GUARD REMEDY 2 OZ OINT TP SCH (09:14)
[2016-06-12] MEDS: HYDROGEL DRESSING 90 GM TUBE TP SCH (09:15)
[2016-06-12] MEDS: CLOTRIMAZOLE/BETAMETASONE DIPROPIONATE 15 GM TUBE TP SCH (09:15)
[2016-06-12] MEDS ORDERED: POTASSIUM CL. PREMIX PERIPHER. 50 ML IV SCH (10:00)
[2016-06-12] MEDS: FIBERSOURCE HN 1,000 ML BOTTLE GT PRN (15:21)
[2016-06-12] MEDS: SERTRALINE HCL 25 MG TABLET PO SCH (15:21)
[2016-06-12] MEDS: MIRTAZAPINE 15 MG TABLET PO SCH (21:15)
[2016-06-12] MEDS: IPRATROPIUM NEB FS 0.5 MG/2.5 ML AMPUL.NEB NEB PRN (23:20)
[2016-06-13] VITALS (19 sets, daily range): BP systolic 107–131; BP diastolic 68–91
[2016-06-13 04:42] LABS: BASOPHILS % (AUTO) 0.3 % (0.0-2.0); DIFF TOTAL % 100 %; HEMATOCRIT 31 % (33-45); HEMOGLOBIN 10.4 g/dL (11.5-14.8); LYMPHOCYTES # (AUTO) 1.4 /CMM (0.8-4.8); LYMPHOCYTES % (AUTO) 9.8 % (20.0-44.0); MEAN CORPUSCULAR HEMOGLOBIN 31 PG (26.0-33.0); MEAN CORPUSCULAR HGB CONC 33 g/dl (31.0-36.0); MEAN CORPUSCULAR VOLUME 94 fL (82-100); MONOCYTES # (AUTO) 0.7 /CMM (0.1-1.30); MONOCYTES % (AUTO) 4.5 % (2.0-12.0); NEUTROPHILS # (AUTO) 12.5 /CMM (1.8-8.9); NEUTROPHILS % (AUTO) 85.4 % (43.0-81.0); PLATELET COUNT (AUTO) 282 /CMM (150-450); RED BLOOD CELL COUNT(AUTO) 3.34 MIL/uL (4.0-5.2); WHITE BLOOD COUNT (AUTO) 14.6 K/uL (4.3-11.0)
[2016-06-13 05:00] LABS: ALBUMIN 1.5 g/dL (3.4-5.0); BILIRUBIN,TOTAL 0.7 mg/dL (0.2-1.0); CALCIUM, SERUM 7.9 mg/dL (8.5-10.1); CREATININE 0.5 mg/dL (0.6-1.3); PHOSPHORUS 3.4 mg/dL (2.5-4.9); POTASSIUM 3.3 mmol/L (3.5-5.1); TOTAL PROTEIN, SERUM 5.4 g/dL (6.4-8.2)
[2016-06-13] MEDS: MINERAL OIL/PETROL OINT 396 GM JAR TP PRN ×2 (05:41)
[2016-06-13] MEDS ORDERED: POTASSIUM CHLORIDE 20 MEQ TAB.PRT.SR PO SCH (07:00)
[2016-06-13] MEDS: ACETYLCYSTEINE 10% SOLN 400 MG/4 ML VIAL NEB SCH ×3 (07:52→23:30)
[2016-06-13] MEDS ORDERED: FUROSEMIDE 20 MG/2 ML VIAL IV PRN (08:00)
[2016-06-13] MEDS ORDERED: POTASSIUM CHLORIDE 20 MEQ TAB.PRT.SR PO ONE (08:00)
[2016-06-13] MEDS ORDERED: GUAIFENESIN/CODEINE 10 ML UDC GT PRN (08:00)
[2016-06-13] MEDS: SERTRALINE HCL 25 MG TABLET PO SCH (08:07)
[2016-06-13] MEDS: FIBERSOURCE HN 1,000 ML BOTTLE GT PRN (08:07)
[2016-06-13] MEDS: PANTOPRAZOLE 40 MG/PACK PACK NG SCH (08:08)
[2016-06-13] MEDS: HYDROCORTISONE SOD SUCCINATE 100 MG/2 ML VIAL IV SCH ×2 (08:08→16:17)
[2016-06-13] MEDS: MULTIVITAMINS,THERAPEUTIC 1 UDTAB TABLET GT SCH (08:08)
[2016-06-13] MEDS: POTASSIUM CHLORIDE 20 MEQ POWDER PACKET NG SCH ×3 (08:08→09:21)
[2016-06-13] MEDS: FLUCONAZOLE (100 MG) 100 MG TABLET PO SCH (08:08)
[2016-06-13] MEDS: HYDROGEL DRESSING 90 GM TUBE TP SCH (08:09)
[2016-06-13] MEDS: Z GUARD REMEDY 2 OZ OINT TP SCH (08:09)
[2016-06-13] MEDS ORDERED: FUROSEMIDE 20 MG TABLET PO ONE (08:41)
[2016-06-13] MEDS ORDERED: IV SET PRIMARY PUMP SET 1 EA INFUS.SET MC ONE ×2 (09:16→21:33)
[2016-06-13] MEDS: ALBUMIN 25% 25 GM in PREMIX 1 EA IV SCH ×2 (09:21→21:32)
[2016-06-13] MEDS: Potassium Chloride 10 MEQ in IV D5W 1,000 ML IV PRN (09:28)
[2016-06-13] MEDS ORDERED: FUROSEMIDE 20 MG/2 ML VIAL IV ONE ×2 (11:00→22:00)
[2016-06-13] MEDS: MIRTAZAPINE 15 MG TABLET PO SCH (21:24)
[2016-06-14] VITALS (32 sets, daily range): BP systolic 106–154; BP diastolic 67–100
[2016-06-14] MEDS: FIBERSOURCE HN 1,000 ML BOTTLE GT PRN ×2 (02:37→21:17)
[2016-06-14] MEDS: Potassium Chloride 10 MEQ in IV D5W 1,000 ML IV PRN (02:37)
[2016-06-14] MEDS: IPRATROPIUM NEB FS 0.5 MG/2.5 ML AMPUL.NEB NEB PRN (03:49)
[2016-06-14] MEDS: ALBUTEROL FS 2.5 MG/0.5 ML VIAL.NEB NEB PRN ×2 (03:49→23:38)
[2016-06-14 07:25] LABS: BASOPHILS % (AUTO) 0.2 % (0.0-2.0); DIFF TOTAL % 100 %; HEMATOCRIT 27 % (33-45); HEMOGLOBIN 8.5 g/dL (11.5-14.8); LYMPHOCYTES # (AUTO) 1.9 /CMM (0.8-4.8); LYMPHOCYTES % (AUTO) 17.4 % (20.0-44.0); MEAN CORPUSCULAR HEMOGLOBIN 30 PG (26.0-33.0); MEAN CORPUSCULAR HGB CONC 32 g/dl (31.0-36.0); MEAN CORPUSCULAR VOLUME 95 fL (82-100); MONOCYTES # (AUTO) 0.6 /CMM (0.1-1.30); MONOCYTES % (AUTO) 5.1 % (2.0-12.0); NEUTROPHILS # (AUTO) 8.4 /CMM (1.8-8.9); NEUTROPHILS % (AUTO) 77.3 % (43.0-81.0); PLATELET COUNT (AUTO) 244 /CMM (150-450); RED BLOOD CELL COUNT(AUTO) 2.81 MIL/uL (4.0-5.2); WHITE BLOOD COUNT (AUTO) 10.9 K/uL (4.3-11.0)
[2016-06-14 07:34] LABS: BILIRUBIN,TOTAL 0.8 mg/dL (0.2-1.0); CALCIUM, SERUM 7.9 mg/dL (8.5-10.1); CREATININE 0.5 mg/dL (0.6-1.3); PHOSPHORUS 2.7 mg/dL (2.5-4.9)
[2016-06-14 07:42] LABS: POTASSIUM 2.7 mmol/L (3.5-5.1)
[2016-06-14] MEDS: HYDROCORTISONE SOD SUCCINATE 100 MG/2 ML VIAL IV SCH ×2 (08:31→16:00)
[2016-06-14] MEDS ORDERED: SECONDARY IV SET 1 EA INFUS.SET MC ONE (08:39)
[2016-06-14] MEDS ORDERED: IV SET PRIMARY PUMP SET 1 EA INFUS.SET MC ONE ×2 (08:39→10:36)
[2016-06-14] MEDS: SERTRALINE HCL 25 MG TABLET PO SCH (08:45)
[2016-06-14] MEDS: MULTIVITAMINS,THERAPEUTIC 1 UDTAB TABLET GT SCH (08:45)
[2016-06-14] MEDS: HYDROGEL DRESSING 90 GM TUBE TP SCH (08:45)
[2016-06-14] MEDS: PANTOPRAZOLE 40 MG/PACK PACK NG SCH (08:45)
[2016-06-14] MEDS: Z GUARD REMEDY 2 OZ OINT TP SCH (08:45)
[2016-06-14] MEDS: POTASSIUM CL. PREMIX PERIPHER. 50 ML IV SCH ×4 (08:46→12:27)
[2016-06-14] MEDS: ACETYLCYSTEINE 10% SOLN 400 MG/4 ML VIAL NEB SCH ×3 (08:47→23:38)
[2016-06-14] MEDS: Magnesium 1GM/D5W 100ML PREMIX 100 ML IV SCH ×4 (08:47→12:27)
[2016-06-14 09:01] LABS: ABG BASE EXCESS 9.2 mmol/L; ABG HCO3 36.4 mmol/L; ABG PCO2 63.6 mmHg (35.0-45.0); ABG PH 7.375 (7.350-7.450); ABG PO2 51.6 mmHg (75.0-100.0); ABG TOTAL HEMOGLOBIN 11.4 G/dL (12.0-16.0); AaDO2 109.4 mmHg; O2Hb 78.2 % (94.0-97.0)
[2016-06-14] MEDS: Potassium Phosphate meq 11 MEQ in IV D5W 100 ML IV SCH ×2 (10:39→13:05)
[2016-06-14 12:33] LABS: INR 0.96 (0.87-1.13); PROTHROMBIN TIME 10.4 SECS (9.5-12.7)
[2016-06-14] MEDS ORDERED: IV NS 0.9% 250 ML IV ONE (15:17)
[2016-06-15] VITALS (28 sets, daily range): BP systolic 122–157; BP diastolic 72–98
[2016-06-15 05:24] LABS: DIFF TOTAL % 100 %; HEMATOCRIT 29 % (33-45); HEMOGLOBIN 9.4 g/dL (11.5-14.8); LYMPHOCYTES # (AUTO) 1.1 /CMM (0.8-4.8); LYMPHOCYTES % (AUTO) 7.2 % (20.0-44.0); MEAN CORPUSCULAR HEMOGLOBIN 31 PG (26.0-33.0); MEAN CORPUSCULAR HGB CONC 33 g/dl (31.0-36.0); MEAN CORPUSCULAR VOLUME 94 fL (82-100); MONOCYTES # (AUTO) 0.4 /CMM (0.1-1.30); MONOCYTES % (AUTO) 2.8 % (2.0-12.0); NEUTROPHILS # (AUTO) 13.9 /CMM (1.8-8.9); PLATELET COUNT (AUTO) 271 /CMM (150-450); RED BLOOD CELL COUNT(AUTO) 3.05 MIL/uL (4.0-5.2); WHITE BLOOD COUNT (AUTO) 15.4 K/uL (4.3-11.0)
[2016-06-15 05:33] LABS: BILIRUBIN,TOTAL 0.7 mg/dL (0.2-1.0); CALCIUM, SERUM 7.9 mg/dL (8.5-10.1); CREATININE 0.5 mg/dL (0.6-1.3); PHOSPHORUS 2.5 mg/dL (2.5-4.9); POTASSIUM 2.9 mmol/L (3.5-5.1); TOTAL PROTEIN, SERUM 5.2 g/dL (6.4-8.2)
[2016-06-15] MEDS ORDERED: POTASSIUM CL. PREMIX PERIPHER. 50 ML ONE (06:09)
[2016-06-15] MEDS: POTASSIUM CL. PREMIX PERIPHER. 50 ML IV SCH ×10 (06:15→18:36)
[2016-06-15] MEDS: ACETYLCYSTEINE 10% SOLN 400 MG/4 ML VIAL NEB SCH ×3 (07:49→23:11)
[2016-06-15] MEDS: ALBUTEROL FS 2.5 MG/0.5 ML VIAL.NEB NEB PRN ×2 (07:49→23:11)
[2016-06-15] MEDS: PANTOPRAZOLE 40 MG/PACK PACK NG SCH (08:38)
[2016-06-15] MEDS: MULTIVITAMINS,THERAPEUTIC 1 UDTAB TABLET GT SCH (08:38)
[2016-06-15] MEDS: Z GUARD REMEDY 2 OZ OINT TP PRN (08:38)
[2016-06-15] MEDS: HYDROCORTISONE SOD SUCCINATE 100 MG/2 ML VIAL IV SCH ×2 (08:38→17:01)
[2016-06-15] MEDS: SERTRALINE HCL 25 MG TABLET PO SCH (08:38)
[2016-06-15] MEDS: HYDROGEL DRESSING 90 GM TUBE TP SCH (08:39)
[2016-06-15] MEDS: Z GUARD REMEDY 2 OZ OINT TP SCH (08:39)
[2016-06-15 09:37] LABS: ABG BASE EXCESS 12.6 mmol/L; ABG HCO3 37.6 mmol/L; ABG PCO2 50.9 mmHg (35.0-45.0); ABG PH 7.486 (7.350-7.450); ABG PO2 91.4 mmHg (75.0-100.0); ABG TOTAL HEMOGLOBIN 10.2 G/dL (12.0-16.0); ALLEN TEST Pass; AaDO2 135.3 mmHg
[2016-06-15] MEDS ORDERED: SECONDARY IV SET 1 EA INFUS.SET MC ONE (11:56)
[2016-06-15] MEDS: FIBERSOURCE HN 1,000 ML BOTTLE GT PRN (17:00)
[2016-06-16] VITALS (26 sets, daily range): BP systolic 115–139; BP diastolic 62–91
[2016-06-16] MEDS: FIBERSOURCE HN 1,000 ML BOTTLE GT PRN (03:40)
[2016-06-16 04:53] LABS: DIFF TOTAL % 100 %; HEMATOCRIT 29 % (33-45); HEMOGLOBIN 9.4 g/dL (11.5-14.8); LYMPHOCYTES # (AUTO) 1.1 /CMM (0.8-4.8); LYMPHOCYTES % (AUTO) 8.5 % (20.0-44.0); MEAN CORPUSCULAR HEMOGLOBIN 31 PG (26.0-33.0); MEAN CORPUSCULAR HGB CONC 33 g/dl (31.0-36.0); MEAN CORPUSCULAR VOLUME 94 fL (82-100); MONOCYTES # (AUTO) 0.4 /CMM (0.1-1.30); MONOCYTES % (AUTO) 3.2 % (2.0-12.0); NEUTROPHILS # (AUTO) 11.3 /CMM (1.8-8.9); NEUTROPHILS % (AUTO) 88.3 % (43.0-81.0); PLATELET COUNT (AUTO) 315 /CMM (150-450); RED BLOOD CELL COUNT(AUTO) 3.03 MIL/uL (4.0-5.2); WHITE BLOOD COUNT (AUTO) 12.8 K/uL (4.3-11.0)
[2016-06-16 05:10] LABS: CALCIUM, SERUM 7.9 mg/dL (8.5-10.1); CREATININE 0.4 mg/dL (0.6-1.3); PHOSPHORUS 2.7 mg/dL (2.5-4.9); POTASSIUM 3.8 mmol/L (3.5-5.1)
[2016-06-16] MEDS: ACETYLCYSTEINE 10% SOLN 400 MG/4 ML VIAL NEB SCH ×2 (07:05→14:49)
[2016-06-16] MEDS: MULTIVITAMINS,THERAPEUTIC 1 UDTAB TABLET GT SCH (09:06)
[2016-06-16] MEDS: PANTOPRAZOLE 40 MG/PACK PACK NG SCH (09:06)
[2016-06-16] MEDS: SERTRALINE HCL 25 MG TABLET PO SCH (09:06)
[2016-06-16] MEDS: HYDROCORTISONE SOD SUCCINATE 100 MG/2 ML VIAL IV SCH ×2 (09:06→18:13)
[2016-06-16] MEDS: HYDROGEL DRESSING 90 GM TUBE TP SCH (09:07)
[2016-06-16] MEDS: Z GUARD REMEDY 2 OZ OINT TP SCH (09:07)
[2016-06-16] MEDS ORDERED: IV SET PRIMARY PUMP SET 1 EA INFUS.SET MC ONE (10:35)
[2016-06-16] MEDS: Magnesium 1GM/D5W 100ML PREMIX 100 ML IV SCH ×2 (10:42→11:44)
[2016-06-16] MEDS: IV NS 0.9% 250 ML IV PRN (11:44)
[2016-06-17] VITALS (23 sets, daily range): BP systolic 112–141; BP diastolic 59–97
[2016-06-17] MEDS: ACETYLCYSTEINE 10% SOLN 400 MG/4 ML VIAL NEB SCH ×4 (00:24→23:32)
[2016-06-17] MEDS: ALBUTEROL FS 2.5 MG/0.5 ML VIAL.NEB NEB PRN ×4 (00:25→23:32)
[2016-06-17 04:45] LABS: BASOPHILS % (AUTO) 0.2 % (0.0-2.0); DIFF TOTAL % 100 %; HEMATOCRIT 27 % (33-45); MEAN CORPUSCULAR HEMOGLOBIN 31 PG (26.0-33.0); MEAN CORPUSCULAR HGB CONC 33 g/dl (31.0-36.0); MEAN CORPUSCULAR VOLUME 93 fL (82-100); MONOCYTES # (AUTO) 0.4 /CMM (0.1-1.30); MONOCYTES % (AUTO) 3.1 % (2.0-12.0); NEUTROPHILS # (AUTO) 10.1 /CMM (1.8-8.9); NEUTROPHILS % (AUTO) 87.7 % (43.0-81.0); PLATELET COUNT (AUTO) 330 /CMM (150-450); RED BLOOD CELL COUNT(AUTO) 2.95 MIL/uL (4.0-5.2); WHITE BLOOD COUNT (AUTO) 11.5 K/uL (4.3-11.0)
[2016-06-17 05:04] LABS: CALCIUM, SERUM 7.8 mg/dL (8.5-10.1); CREATININE 0.4 mg/dL (0.6-1.3); PHOSPHORUS 3.1 mg/dL (2.5-4.9); POTASSIUM 3.6 mmol/L (3.5-5.1)
[2016-06-17] MEDS: IPRATROPIUM NEB FS 0.5 MG/2.5 ML AMPUL.NEB NEB PRN ×2 (07:28→14:53)
[2016-06-17] MEDS: PANTOPRAZOLE 40 MG/PACK PACK NG SCH (09:00)
[2016-06-17] MEDS: SERTRALINE HCL 25 MG TABLET PO SCH (09:00)
[2016-06-17] MEDS: MULTIVITAMINS,THERAPEUTIC 1 UDTAB TABLET GT SCH (09:00)
[2016-06-17] MEDS: Z GUARD REMEDY 2 OZ OINT TP SCH (09:05)
[2016-06-17] MEDS: HYDROGEL DRESSING 90 GM TUBE TP SCH (09:05)
[2016-06-17] MEDS: HYDROCORTISONE SOD SUCCINATE 100 MG/2 ML VIAL IV SCH ×2 (09:07→16:48)
[2016-06-17] MEDS: IV NS 0.9% 250 ML IV PRN (12:59)
[2016-06-17] MEDS: MINERAL OIL/PETROL OINT 396 GM JAR TP PRN ×2 (12:59)
[2016-06-17] MEDS: ACETAMINOPHEN 650 MG/20.3 ML UDC PO PRN (23:19)
[2016-06-18] VITALS (14 sets, daily range): BP systolic 97–138; BP diastolic 43–90
[2016-06-18 04:42] LABS: BASOPHILS % (AUTO) 0.1 % (0.0-2.0); DIFF TOTAL % 100 %; HEMATOCRIT 27 % (33-45); HEMOGLOBIN 8.9 g/dL (11.5-14.8); LYMPHOCYTES % (AUTO) 12.3 % (20.0-44.0); MEAN CORPUSCULAR HEMOGLOBIN 31 PG (26.0-33.0); MEAN CORPUSCULAR HGB CONC 34 g/dl (31.0-36.0); MEAN CORPUSCULAR VOLUME 93 fL (82-100); MONOCYTES # (AUTO) 0.3 /CMM (0.1-1.30); MONOCYTES % (AUTO) 3.7 % (2.0-12.0); NEUTROPHILS # (AUTO) 6.8 /CMM (1.8-8.9); NEUTROPHILS % (AUTO) 83.9 % (43.0-81.0); PLATELET COUNT (AUTO) 384 /CMM (150-450); RED BLOOD CELL COUNT(AUTO) 2.87 MIL/uL (4.0-5.2); WHITE BLOOD COUNT (AUTO) 8.1 K/uL (4.3-11.0)
[2016-06-18 05:07] LABS: CALCIUM, SERUM 7.9 mg/dL (8.5-10.1); CREATININE 0.4 mg/dL (0.6-1.3); POTASSIUM 3.3 mmol/L (3.5-5.1)
[2016-06-18] MEDS: ALBUTEROL FS 2.5 MG/0.5 ML VIAL.NEB NEB PRN ×2 (07:40→23:27)
[2016-06-18] MEDS: ACETYLCYSTEINE 10% SOLN 400 MG/4 ML VIAL NEB SCH ×3 (07:40→23:26)
[2016-06-18] MEDS: IPRATROPIUM NEB FS 0.5 MG/2.5 ML AMPUL.NEB NEB PRN ×2 (07:40→15:36)
[2016-06-18] MEDS: PANTOPRAZOLE 40 MG/PACK PACK NG SCH (08:02)
[2016-06-18] MEDS: MULTIVITAMINS,THERAPEUTIC 1 UDTAB TABLET GT SCH (08:02)
[2016-06-18] MEDS: HYDROCORTISONE SOD SUCCINATE 100 MG/2 ML VIAL IV SCH ×2 (08:02→16:01)
[2016-06-18] MEDS: SERTRALINE HCL 25 MG TABLET PO SCH (08:02)
[2016-06-18] MEDS: Z GUARD REMEDY 2 OZ OINT TP SCH (08:03)
[2016-06-18] MEDS: HYDROGEL DRESSING 90 GM TUBE TP SCH (08:03)
[2016-06-18] MEDS ORDERED: POTASSIUM CHLORIDE 20 MEQ TAB.PRT.SR PO SCH (11:00)
[2016-06-18] MEDS ORDERED: POTASSIUM CHLORIDE 20 MEQ POWDER PACKET GT ONE (11:30)
[2016-06-18] MEDS: ACETAMINOPHEN 650 MG/20.3 ML UDC PO PRN (16:01)
[2016-06-19] VITALS: BP 132/91
[2016-06-19] MEDS: IV NS 0.9% 250 ML IV PRN (02:10)
[2016-06-19] MEDS: MINERAL OIL/PETROL OINT 396 GM JAR TP PRN ×2 (02:13)
[2016-06-19 04:00] VITALS: BP 121/83
[2016-06-19] MEDS: ACETAMINOPHEN 650 MG/20.3 ML UDC PO PRN ×2 (04:02→12:20)
[2016-06-19 07:06] LABS: DIFF TOTAL % 100 %; HEMATOCRIT 27 % (33-45); HEMOGLOBIN 9.1 g/dL (11.5-14.8); LYMPHOCYTES # (AUTO) 2.2 /CMM (0.8-4.8); LYMPHOCYTES % (AUTO) 23.3 % (20.0-44.0); MEAN CORPUSCULAR HEMOGLOBIN 31 PG (26.0-33.0); MEAN CORPUSCULAR HGB CONC 33 g/dl (31.0-36.0); MEAN CORPUSCULAR VOLUME 94 fL (82-100); MONOCYTES # (AUTO) 0.7 /CMM (0.1-1.30); MONOCYTES % (AUTO) 7.2 % (2.0-12.0); NEUTROPHILS # (AUTO) 6.6 /CMM (1.8-8.9); NEUTROPHILS % (AUTO) 69.5 % (43.0-81.0); PLATELET COUNT (AUTO) 438 /CMM (150-450); RED BLOOD CELL COUNT(AUTO) 2.93 MIL/uL (4.0-5.2); WHITE BLOOD COUNT (AUTO) 9.4 K/uL (4.3-11.0)
[2016-06-19 07:29] LABS: CALCIUM, SERUM 7.9 mg/dL (8.5-10.1); CREATININE 0.6 mg/dL (0.6-1.3); PHOSPHORUS 3.4 mg/dL (2.5-4.9); POTASSIUM 2.9 mmol/L (3.5-5.1)
[2016-06-19 08:00] VITALS: BP 134/72
[2016-06-19] MEDS: ACETYLCYSTEINE 10% SOLN 400 MG/4 ML VIAL NEB SCH ×3 (08:22→23:38)
[2016-06-19] MEDS: IPRATROPIUM NEB FS 0.5 MG/2.5 ML AMPUL.NEB NEB PRN ×2 (08:30→15:54)
[2016-06-19] MEDS: ALBUTEROL FS 2.5 MG/0.5 ML VIAL.NEB NEB PRN ×3 (08:30→23:39)
[2016-06-19] MEDS: PANTOPRAZOLE 40 MG/PACK PACK NG SCH (08:33)
[2016-06-19] MEDS: MULTIVITAMINS,THERAPEUTIC 1 UDTAB TABLET GT SCH (08:33)
[2016-06-19] MEDS: HYDROCORTISONE SOD SUCCINATE 100 MG/2 ML VIAL IV SCH (08:33)
[2016-06-19] MEDS: HYDROGEL DRESSING 90 GM TUBE TP SCH (08:34)
[2016-06-19] MEDS: Z GUARD REMEDY 2 OZ OINT TP SCH (08:34)
[2016-06-19] MEDS: Z GUARD REMEDY 2 OZ OINT TP PRN (08:34)
[2016-06-19] MEDS: SERTRALINE HCL 25 MG TABLET PO SCH (08:34)
[2016-06-19 12:00] VITALS: BP 109/71
[2016-06-19] MEDS ORDERED: POTASSIUM CHLORIDE 20 MEQ TAB.PRT.SR PO ONE (12:00)
[2016-06-19] MEDS ORDERED: POTASSIUM CHLORIDE 20 MEQ POWDER PACKET PO ONE (12:00)
[2016-06-19 16:00] VITALS: BP 124/87
[2016-06-19 16:51] LABS: KETONES,URINE NEGATIVE (NEGATIVE); LEUKOCYTE ESTERASE ,URINE 1+ (NEGATIVE); PH,URINE 7.5 (5.0-8.0)
[2016-06-19 16:59] LABS: ADD UA MICROSCOPIC YES
[2016-06-19 17:04] LABS: ADD URINE CULTURE YES
[2016-06-19 20:00] VITALS: BP 139/85
[2016-06-20] VITALS: BP 124/82
[2016-06-20 04:00] VITALS: BP 116/78
[2016-06-20] MEDS: ACETYLCYSTEINE 10% SOLN 400 MG/4 ML VIAL NEB SCH ×3 (07:25→23:32)
[2016-06-20 07:27] LABS: BASOPHILS % (AUTO) 0.2 % (0.0-2.0); DIFF TOTAL % 100 %; EOSINOPHILS % (AUTO) 0.5 % (0.0-6.0); HEMATOCRIT 28 % (33-45); HEMOGLOBIN 9.2 g/dL (11.5-14.8); LYMPHOCYTES % (AUTO) 34.9 % (20.0-44.0); MEAN CORPUSCULAR HEMOGLOBIN 31 PG (26.0-33.0); MEAN CORPUSCULAR HGB CONC 33 g/dl (31.0-36.0); MEAN CORPUSCULAR VOLUME 93 fL (82-100); MONOCYTES # (AUTO) 0.5 /CMM (0.1-1.30); MONOCYTES % (AUTO) 6.2 % (2.0-12.0); NEUTROPHILS # (AUTO) 4.9 /CMM (1.8-8.9); NEUTROPHILS % (AUTO) 58.2 % (43.0-81.0); PLATELET COUNT (AUTO) 425 /CMM (150-450); RED BLOOD CELL COUNT(AUTO) 3.01 MIL/uL (4.0-5.2); WHITE BLOOD COUNT (AUTO) 8.5 K/uL (4.3-11.0)
[2016-06-20 07:50] LABS: ALBUMIN 1.8 g/dL (3.4-5.0); BILIRUBIN,TOTAL 0.5 mg/dL (0.2-1.0); CALCIUM, SERUM 7.7 mg/dL (8.5-10.1); CREATININE 0.5 mg/dL (0.6-1.3); PHOSPHORUS 2.8 mg/dL (2.5-4.9); TOTAL PROTEIN, SERUM 4.7 g/dL (6.4-8.2)
[2016-06-20 07:55] LABS: POTASSIUM 2.8 mmol/L (3.5-5.1)
[2016-06-20 08:00] VITALS: BP 118/82
[2016-06-20] MEDS ORDERED: POTASSIUM CHLORIDE 20 MEQ POWDER PACKET GT ONE (08:30)
[2016-06-20] MEDS: SERTRALINE HCL 25 MG TABLET PO SCH (09:46)
[2016-06-20] MEDS: PANTOPRAZOLE 40 MG/PACK PACK NG SCH (09:46)
[2016-06-20] MEDS: HYDROCORTISONE 5 MG TABLET PO SCH (09:47)
[2016-06-20] MEDS: MULTIVITAMINS,THERAPEUTIC 1 UDTAB TABLET GT SCH (09:47)
[2016-06-20] MEDS: HYDROGEL DRESSING 90 GM TUBE TP SCH (09:48)
[2016-06-20] MEDS: Z GUARD REMEDY 2 OZ OINT TP PRN (09:48)
[2016-06-20] MEDS: Z GUARD REMEDY 2 OZ OINT TP SCH (09:48)
[2016-06-20] MEDS: ACETAMINOPHEN 650 MG/20.3 ML UDC PO PRN (09:52)
[2016-06-20 12:00] VITALS: BP 128/85
[2016-06-20] MEDS ORDERED: SECONDARY IV SET 1 EA INFUS.SET MC ONE (12:11)
[2016-06-20] MEDS ORDERED: IV SET PRIMARY PUMP SET 1 EA INFUS.SET MC ONE (12:12)
[2016-06-20] MEDS: IV NS 0.9% 250 ML IV PRN (12:34)
[2016-06-20] MEDS: Magnesium 1GM/D5W 100ML PREMIX 100 ML IV SCH ×2 (12:38→13:34)
[2016-06-20] MEDS: HYDROCODONE/APAP 5/325MG 1 EACH TABLET PO PRN ×3 (13:33→23:14)
[2016-06-20] MEDS ORDERED: POTASSIUM CHLORIDE 20 MEQ TAB.PRT.SR PO SCH (15:00)
[2016-06-20 16:00] VITALS: BP 128/83
[2016-06-20 20:00] VITALS: BP 125/74
[2016-06-21] VITALS (7 sets, daily range): BP systolic 110–138; BP diastolic 73–90
[2016-06-21] MEDS: HYDROCODONE/APAP 5/325MG 1 EACH TABLET PO PRN ×4 (04:25→21:44)
[2016-06-21 06:39] LABS: BASOPHILS % (AUTO) 0.4 % (0.0-2.0); DIFF TOTAL % 100 %; EOSINOPHILS # (AUTO) 0.1 /CMM (0.0-0.7); EOSINOPHILS % (AUTO) 1.8 % (0.0-6.0); HEMATOCRIT 30 % (33-45); HEMOGLOBIN 10.1 g/dL (11.5-14.8); LYMPHOCYTES # (AUTO) 2.2 /CMM (0.8-4.8); LYMPHOCYTES % (AUTO) 28.4 % (20.0-44.0); MEAN CORPUSCULAR HEMOGLOBIN 31 PG (26.0-33.0); MEAN CORPUSCULAR HGB CONC 33 g/dl (31.0-36.0); MEAN CORPUSCULAR VOLUME 93 fL (82-100); MONOCYTES # (AUTO) 0.4 /CMM (0.1-1.30); MONOCYTES % (AUTO) 5.3 % (2.0-12.0); NEUTROPHILS # (AUTO) 4.9 /CMM (1.8-8.9); NEUTROPHILS % (AUTO) 64.1 % (43.0-81.0); PLATELET COUNT (AUTO) 426 /CMM (150-450); RED BLOOD CELL COUNT(AUTO) 3.25 MIL/uL (4.0-5.2); WHITE BLOOD COUNT (AUTO) 7.6 K/uL (4.3-11.0)
[2016-06-21 07:04] LABS: CALCIUM, SERUM 7.7 mg/dL (8.5-10.1); CREATININE 0.4 mg/dL (0.6-1.3); PHOSPHORUS 2.7 mg/dL (2.5-4.9); POTASSIUM 4.2 mmol/L (3.5-5.1)
[2016-06-21] MEDS: SERTRALINE HCL 25 MG TABLET PO SCH (08:13)
[2016-06-21] MEDS: HYDROCORTISONE 5 MG TABLET PO SCH (08:13)
[2016-06-21] MEDS: MULTIVITAMINS,THERAPEUTIC 1 UDTAB TABLET GT SCH (08:13)
[2016-06-21] MEDS: Z GUARD REMEDY 2 OZ OINT TP SCH (08:14)
[2016-06-21] MEDS: PANTOPRAZOLE 40 MG/PACK PACK NG SCH (08:14)
[2016-06-21] MEDS: HYDROGEL DRESSING 90 GM TUBE TP SCH (08:14)
[2016-06-21] MEDS: ALBUTEROL FS 2.5 MG/0.5 ML VIAL.NEB NEB PRN ×2 (08:31→14:41)
[2016-06-21] MEDS: ACETYLCYSTEINE 10% SOLN 400 MG/4 ML VIAL NEB SCH ×3 (08:31→23:26)
[2016-06-21] MEDS: TRAZODONE 50 MG TABLET PO PRN (23:03)
[2016-06-22 04:05] VITALS: BP 130/78
[2016-06-22 07:06] LABS: BASOPHILS % (AUTO) 0.4 % (0.0-2.0); DIFF TOTAL % 100 %; EOSINOPHILS # (AUTO) 0.2 /CMM (0.0-0.7); EOSINOPHILS % (AUTO) 2.5 % (0.0-6.0); HEMATOCRIT 29 % (33-45); HEMOGLOBIN 9.6 g/dL (11.5-14.8); LYMPHOCYTES # (AUTO) 2.1 /CMM (0.8-4.8); LYMPHOCYTES % (AUTO) 27.2 % (20.0-44.0); MEAN CORPUSCULAR HEMOGLOBIN 31 PG (26.0-33.0); MEAN CORPUSCULAR HGB CONC 33 g/dl (31.0-36.0); MEAN CORPUSCULAR VOLUME 94 fL (82-100); MONOCYTES # (AUTO) 0.4 /CMM (0.1-1.30); MONOCYTES % (AUTO) 4.8 % (2.0-12.0); NEUTROPHILS # (AUTO) 4.9 /CMM (1.8-8.9); NEUTROPHILS % (AUTO) 65.1 % (43.0-81.0); PLATELET COUNT (AUTO) 459 /CMM (150-450); RED BLOOD CELL COUNT(AUTO) 3.12 MIL/uL (4.0-5.2); WHITE BLOOD COUNT (AUTO) 7.6 K/uL (4.3-11.0)
[2016-06-22 08:00] VITALS: BP 115/82
[2016-06-22] MEDS: ALBUTEROL FS 2.5 MG/0.5 ML VIAL.NEB NEB PRN ×2 (08:15→15:35)
[2016-06-22] MEDS: ACETYLCYSTEINE 10% SOLN 400 MG/4 ML VIAL NEB SCH ×2 (08:15→15:35)
[2016-06-22] MEDS: IPRATROPIUM NEB FS 0.5 MG/2.5 ML AMPUL.NEB NEB PRN ×2 (08:15→15:35)
[2016-06-22] MEDS: SERTRALINE HCL 25 MG TABLET PO SCH (08:42)
[2016-06-22] MEDS: MULTIVITAMINS,THERAPEUTIC 1 UDTAB TABLET GT SCH (08:42)
[2016-06-22] MEDS: PANTOPRAZOLE 40 MG/PACK PACK NG SCH (08:42)
[2016-06-22] MEDS: Z GUARD REMEDY 2 OZ OINT TP SCH (08:42)
[2016-06-22] MEDS: HYDROGEL DRESSING 90 GM TUBE TP SCH (08:43)
[2016-06-22 09:06] LABS: CALCIUM, SERUM 7.8 mg/dL (8.5-10.1); CREATININE 0.5 mg/dL (0.6-1.3); PHOSPHORUS 2.8 mg/dL (2.5-4.9)
[2016-06-22] MEDS: HYDROCODONE/APAP 5/325MG 1 EACH TABLET PO PRN ×3 (12:16→20:29)
[2016-06-22 16:00] VITALS: BP 115/86
[2016-06-22 20:00] VITALS: BP 109/70
[2016-06-23] MEDS: IPRATROPIUM NEB FS 0.5 MG/2.5 ML AMPUL.NEB NEB PRN
[2016-06-23] MEDS: ALBUTEROL FS 2.5 MG/0.5 ML VIAL.NEB NEB PRN
[2016-06-23] MEDS: HYDROCODONE/APAP 5/325MG 1 EACH TABLET PO PRN ×4 (00:32→19:55)
[2016-06-23] MEDS: TRAZODONE 50 MG TABLET PO PRN (01:43)
[2016-06-23 06:49] LABS: BASOPHILS % (AUTO) 0.3 % (0.0-2.0); DIFF TOTAL % 100 %; EOSINOPHILS # (AUTO) 0.2 /CMM (0.0-0.7); EOSINOPHILS % (AUTO) 2.3 % (0.0-6.0); HEMATOCRIT 27 % (33-45); HEMOGLOBIN 8.8 g/dL (11.5-14.8); LYMPHOCYTES # (AUTO) 2.4 /CMM (0.8-4.8); LYMPHOCYTES % (AUTO) 34.9 % (20.0-44.0); MEAN CORPUSCULAR HEMOGLOBIN 31 PG (26.0-33.0); MEAN CORPUSCULAR HGB CONC 33 g/dl (31.0-36.0); MEAN CORPUSCULAR VOLUME 94 fL (82-100); MONOCYTES # (AUTO) 0.3 /CMM (0.1-1.30); NEUTROPHILS # (AUTO) 3.9 /CMM (1.8-8.9); NEUTROPHILS % (AUTO) 58.5 % (43.0-81.0); PLATELET COUNT (AUTO) 423 /CMM (150-450); RED BLOOD CELL COUNT(AUTO) 2.86 MIL/uL (4.0-5.2); WHITE BLOOD COUNT (AUTO) 6.8 K/uL (4.3-11.0)
[2016-06-23 07:24] LABS: CALCIUM, SERUM 7.7 mg/dL (8.5-10.1); CREATININE 0.5 mg/dL (0.6-1.3); PHOSPHORUS 2.6 mg/dL (2.5-4.9); POTASSIUM 4.1 mmol/L (3.5-5.1)
[2016-06-23 08:00] VITALS: BP 103/62
[2016-06-23] MEDS: ACETYLCYSTEINE 10% SOLN 400 MG/4 ML VIAL NEB SCH ×2 (08:17)
[2016-06-23] MEDS: PANTOPRAZOLE 40 MG/PACK PACK NG SCH (08:49)
[2016-06-23] MEDS: Z GUARD REMEDY 2 OZ OINT TP SCH (08:49)
[2016-06-23] MEDS: MULTIVITAMINS,THERAPEUTIC 1 UDTAB TABLET GT SCH (08:49)
[2016-06-23] MEDS: HYDROGEL DRESSING 90 GM TUBE TP SCH (08:50)
[2016-06-23] MEDS ORDERED: IV SET PRIMARY PUMP SET 1 EA INFUS.SET MC ONE (11:12)
[2016-06-23] MEDS: Magnesium 1GM/D5W 100ML PREMIX 100 ML IV SCH ×2 (11:15→12:12)
[2016-06-23] MEDS ORDERED: GLUCAGON,HUMAN RECOMBINANT 1 MG/VIAL VIAL IM ONE (14:30)
[2016-06-23 16:00] VITALS: BP 122/69
[2016-06-23 20:00] VITALS: BP 112/74
[2016-06-23 20:08] VITALS: BP 112/74
[2016-06-23] MEDS ORDERED: VENLAFAXINE XR 75 MG CAP.SR.24H PO SCH (22:00)
[2016-06-23] MEDS ORDERED: SERTRALINE HCL 25 MG TABLET PO SCH (22:00)
[2016-06-23 23:34] VITALS: BP 112/74
[2016-06-24 07:08] LABS: BASOPHILS % (AUTO) 0.5 % (0.0-2.0); DIFF TOTAL % 100 %; EOSINOPHILS # (AUTO) 0.2 /CMM (0.0-0.7); EOSINOPHILS % (AUTO) 2.5 % (0.0-6.0); HEMATOCRIT 28 % (33-45); HEMOGLOBIN 9.4 g/dL (11.5-14.8); LYMPHOCYTES # (AUTO) 1.9 /CMM (0.8-4.8); LYMPHOCYTES % (AUTO) 27.9 % (20.0-44.0); MEAN CORPUSCULAR HEMOGLOBIN 31 PG (26.0-33.0); MEAN CORPUSCULAR HGB CONC 33 g/dl (31.0-36.0); MEAN CORPUSCULAR VOLUME 93 fL (82-100); MONOCYTES # (AUTO) 0.3 /CMM (0.1-1.30); MONOCYTES % (AUTO) 4.2 % (2.0-12.0); NEUTROPHILS # (AUTO) 4.3 /CMM (1.8-8.9); NEUTROPHILS % (AUTO) 64.9 % (43.0-81.0); PLATELET COUNT (AUTO) 445 /CMM (150-450); RED BLOOD CELL COUNT(AUTO) 3.01 MIL/uL (4.0-5.2); WHITE BLOOD COUNT (AUTO) 6.7 K/uL (4.3-11.0)
[2016-06-24 07:41] LABS: CALCIUM, SERUM 7.7 mg/dL (8.5-10.1); CREATININE 0.4 mg/dL (0.6-1.3); PHOSPHORUS 2.5 mg/dL (2.5-4.9); POTASSIUM 4.1 mmol/L (3.5-5.1)
[2016-06-24 08:00] VITALS: BP 111/71
[2016-06-24 08:11] VITALS: BP 111/71
[2016-06-24] MEDS: MULTIVITAMINS,THERAPEUTIC 1 UDTAB TABLET GT SCH (08:31)
[2016-06-24] MEDS: Z GUARD REMEDY 2 OZ OINT TP SCH (08:32)
[2016-06-24] MEDS: PANTOPRAZOLE 40 MG/PACK PACK NG SCH (08:32)
[2016-06-24] MEDS: HYDROCODONE/APAP 5/325MG 1 EACH TABLET PO PRN ×3 (08:34→16:25)
[2016-06-24] MEDS: HYDROGEL DRESSING 90 GM TUBE TP SCH (08:35)
[2016-06-24 12:00] VITALS: BP 116/74
[2016-06-24 16:00] VITALS: BP 124/75
[2016-06-24 17:00] VITALS: BP 148/70
[2016-06-24] MEDS ORDERED: SERTRALINE HCL 25 MG TABLET PO SCH ×2 (22:00)
[2016-06-24] MEDS ORDERED: VENLAFAXINE XR 75 MG CAP.SR.24H PO SCH (22:00)
== END 2016-06-24 17:10 | disposition home or self-care (01) | DRG 720 ==
LOC: ER 16:05 → TELE 20:10 → MED 05-28 13:17 → ICU 05-30 10:53 → TELE1 06-13 18:00 → TELE-TD 06-13 18:07 → ICU 06-14 09:49 → TELE-TD 06-18 10:46 → MEDSG1 06-20 10:29 → MED 06-21 22:38
PROVIDERS: ADMIT Family Medicine; ATTEND Family Medicine
PROC: 5A1955Z Respiratory Ventilation, Greater than 96 Consecutive Hours (ICD-10-PCS; principal; 2016-05-25)
PROC: 02HV33Z Insertion of Infusion Device into Superior Vena Cava, Percutaneous Approach (ICD-10-PCS; 2016-05-30)
PROC: B548ZZA Ultrasonography of Superior Vena Cava, Guidance (ICD-10-PCS; 2016-05-30)
PROC: 0BH17EZ Insertion of Endotracheal Airway into Trachea, Via Natural or Artificial Opening (ICD-10-PCS; 2016-05-30)
PROC: 30233N1 Transfusion of Nonautologous Red Blood Cells into Peripheral Vein, Percutaneous Approach (ICD-10-PCS; 2016-06-06)
DX: A41.9 Sepsis, unspecified organism (principal); J69.0 Pneumonitis due to inhalation of food and vomit; R65.21 Severe sepsis with septic shock; G92 Toxic encephalopathy; I50.33 Acute on chronic diastolic (congestive) heart failure; J96.01 Acute respiratory failure with hypoxia; E43 Unspecified severe protein-calorie malnutrition; J96.02 Acute respiratory failure with hypercapnia; F10.231 Alcohol dependence with withdrawal delirium; R64 Cachexia; E87.2 Acidosis; D61.818 Other pancytopenia; E87.0 Hyperosmolality and hypernatremia; D68.9 Coagulation defect, unspecified; F33.2 Major depressive disorder, recurrent severe without psychotic features; E78.5 Hyperlipidemia, unspecified; Z59.0 Homelessness; E16.2 Hypoglycemia, unspecified; K72.90 Hepatic failure, unspecified without coma; F11.10 Opioid abuse, uncomplicated; T50.904A Poisoning by unspecified drugs, medicaments and biological substances, undetermined, initial encounter; Z51.5 Encounter for palliative care; E27.40 Unspecified adrenocortical insufficiency; E83.39 Other disorders of phosphorus metabolism; E83.42 Hypomagnesemia; E83.51 Hypocalcemia; E87.1 Hypo-osmolality and hyponatremia; E87.6 Hypokalemia; E89.0 Postprocedural hypothyroidism; F43.10 Post-traumatic stress disorder, unspecified; J44.9 Chronic obstructive pulmonary disease, unspecified; J45.909 Unspecified asthma, uncomplicated; J98.11 Atelectasis; K21.9 Gastro-esophageal reflux disease without esophagitis; K44.9 Diaphragmatic hernia without obstruction or gangrene; K70.31 Alcoholic cirrhosis of liver with ascites; L03.115 Cellulitis of right lower limb; L03.116 Cellulitis of left lower limb; L97.429 Non-pressure chronic ulcer of left heel and midfoot with unspecified severity; M19.90 Unspecified osteoarthritis, unspecified site; M41.9 Scoliosis, unspecified; Z66 Do not resuscitate; Z88.0 Allergy status to penicillin; Z90.49 Acquired absence of other specified parts of digestive tract; I11.0 Hypertensive heart disease with heart failure
CPT/HCPCS: 31720; 36415; 36600; 70450-TC; 71010-TC; 74000-TC; 76700-TC; 76705-TC; 80048-TC; 80053-TC; 80074; 80076-TC; 80202-TC; 80305; 81000-TC; 82140-TC; 82533; 82550-TC; 82553-TC; 82728-TC; 82746; 82803-TC; 82962-TC; 83540-TC; 83605-TC; 83735-TC; 84100-TC; 84134-TC; 84155; 84165; 84439-TC; 84443-TC; 84484-TC; 84703-TC; 85025-TC; 85045-TC; 85385-TC; 85610-TC; 85730-TC; 86850-TC; 86901; 86921-TC; 87040-TC; 87070-TC; 87081-TC; 87086-TC; 92526; 92611-TC; 93307-TC; 94003-TC; 94640-TC; 94664-TC; 94760-TC; 94799-TC; 97001-TC; 97003-TC; 97110-TC; 97116-TC; 97530-TC; A4216; A4217; A4606; A6248; A6402; A6403; A9563; C1751; C9113; G6038-TC; G6039-TC; G6040-TC; J0330; J1450; J1610; J1720; J1940; J1956; J2060; J2185; J2270; J3370; J3475; J3480; J3490; J7030; J7040; J7042; J7050; J7060; J7070; P9016-BL; P9047; Z7610